=== PATIENT | female | born 1995 | race Caucasian/White ===

== ENCOUNTER 2017-05-12 20:54 | Emergency (ER) | payer BC ==
[2017-05-12 21:06] VITALS: TEMP 97.5
[2017-05-12] MEDS ORDERED: SODIUM CHLORIDE 0.9% 1,000 ML IV STA (21:23)
--- NOTE | 2017-05-12 21:23 | ED ---
Abdominal Pain HPI - General Chief Complaint: Abdominal Pain Stated Complaint: Vomiting Time Seen by Provider: 05/12/17 21:11 Source: patient Mode of arrival: ambulatory Limitations: no limitations - History of Present Illness Initial Comments: 22-year-old female patient presents to the emergency department today with complaints of abdominal pain and vomiting. The patient states that approximately one month ago her symptoms began. States it felt like period cramping however she did not have a period. She states that since that time she has been very nauseated. States was last 4-5 days she has been vomiting multiple times per day. States she is unable to eat or drink related to this. States that she is having left flank pain that radiates down into her left lower quadrant. She denies any hematuria, dysuria, urinary frequency, urinary urgency. She denies any constipation or diarrhea. States that about a week ago she did notice a small amount of bright red blood in her stool. She states this has resolved. She denies any fevers or chills. States that she did have a negative test at the beginning of April. Patient denies any recent rash, shortness breath, chest pain, back pain, numbness, tingling, dizziness, weakness, headache, visual changes, or any other complaints. - Related Data Previous Rx's Medication Instructions Recorded Metoclopramide [Reglan] 10 mg PO Q8H #10 tab 05/12/17 Pnv No.95/Ferrous Fum/Folic AC 1 each PO DAILY #30 tablet 05/12/17 [ Multivitamin Tablet] Allergies Allergy/AdvReac Type Severity Reaction Status Date / Time No Known Allergies Allergy Verified 05/12/17 21:26 Review of Systems ROS Statement: Those systems with pertinent positive or pertinent negative responses have been documented in the HPI. ROS Other: All systems not noted in ROS Statement are negative. Past Medical History Past Medical History: Thyroid Disorder History of Any Multi-Drug Resistant Organisms: None Reported Past Surgical History: No Surgical Hx Reported Past Psychological History: Anxiety, Depression Smoking Status: Current every day smoker Past Alcohol Use History: None Reported Past Drug Use History: None Reported General Exam Limitations: no limitations General appearance: alert, in no apparent distress, other (This is a well- developed, well-nourished adult female patient in no acute distress. Vital signs upon presentation temperature 97.5F, pulse 92, respirations 16, blood pressure 126/72, pulse ox 98% on room air.) Eye exam: Present: normal appearance, PERRL, EOMI. Absent: scleral icterus, conjunctival injection, periorbital swelling ENT exam: Present: normal exam, normal oropharynx, mucous membranes moist Respiratory exam: Present: normal lung sounds bilaterally. Absent: respiratory distress, wheezes, rales, rhonchi, stridor Cardiovascular Exam: Present: regular rate, normal rhythm, normal heart sounds. Absent: systolic murmur, diastolic murmur, rubs, gallop, clicks GI/Abdominal exam: Present: soft, normal bowel sounds. Absent: distended, tenderness, guarding, rebound, rigid Neurological exam: Present: alert, oriented X3, CN II-XII intact Psychiatric exam: Present: normal affect, normal mood Skin exam: Present: warm, dry, intact, normal color. Absent: rash Course Vital Signs 05/12/17 05/12/17 05/12/17 21:01 22:47 23:39 Temperature 97.5 F L Pulse Rate 92 80 80 Respiratory 16 18 18 Rate Blood Pressure 126/72 148/70 129/60 O2 Sat by Pulse 98 97 97 Oximetry Medical Decision Making - Medical Decision Making 22-year-old female patient presented to the emergency department today for some mild left lower quadrant abdominal pain as well as vomiting. Physical examination was unremarkable. Patient had no abdominal tenderness. Labs were reviewed and patient was found to have a positive urine hCG. We did perform ultrasound and they did show a viable intrauterine measuring approximately 8 weeks 1 day. We then added a hCG quantitative to this ear which showed a level of over 66,000. I did discuss findings with the patient. We did discuss use of vitamins, nausea medication, and medication safe for pain in . She is instructed to follow-up with OB as soon as possible. She is instructed to return here immediately for any new, worsening, or concerning symptoms. She verbalizes understanding and agrees with this plan. - Lab Data Result diagrams: 05/12/17 22:02 05/12/17 22:00 Lab Results 05/12/17 05/12/17 05/12/17 Range/Units 21:35 21:35 22:00 WBC (4.0-11.0) k/uL RBC (3.80-5.40) m/uL Hgb (11.4-16.0) gm/dL Hct (34.0-46.0) % MCV (80.0-100.0) fL MCH (25.0-35.0) pg MCHC (31.0-37.0) g/dL RDW (11.5-15.5) % Plt Count (150-450) k/uL Neutrophils % % Lymphocytes % % Monocytes % % Eosinophils % % Basophils % % Neutrophils # (1.3-7.7) k/uL Lymphocytes # (1.0-4.8) k/uL Monocytes # (0-1.0) k/uL Eosinophils # (0-0.7) k/uL Basophils # (0-0.2) k/uL Sodium 137 (137-145) mmol/L Potassium 3.8 (3.5-5.1) mmol/L Chloride 103 (98-107) mmol/L Carbon Dioxide 23 (22-30) mmol/L Anion Gap 11 mmol/L BUN 10 (7-17) mg/dL Creatinine 0.60 (0.52-1.04) mg/dL Est GFR (CKD-EPI)AfAm >90 (>60 ml/min/1.73 sqM) Est GFR (CKD-EPI)NonAf >90 (>60 ml/min/1.73 sqM) Glucose 97 (74-99) mg/dL Calcium 10.0 (8.4-10.2) mg/dL Total Bilirubin 0.5 (0.2-1.3) mg/dL AST 17 (14-36) U/L ALT 22 (9-52) U/L Alkaline Phosphatase 98 (38-126) U/L Total Protein 7.2 (6.3-8.2) g/dL Albumin 4.2 (3.5-5.0) g/dL Amylase 44 (30-110) U/L Lipase 60 (23-300) U/L HCG, Quant mIU/mL Urine Color Yellow Urine Appearance Cloudy H (Clear) Urine pH 6.5 (5.0-8.0) Ur Specific [place] 1.022 (1.001-1.035) Urine Protein 1+ H (Negative) Urine Glucose (UA) Negative (Negative) Urine Ketones 2+ H (Negative) Urine Blood Negative (Negative) Urine Nitrite Negative (Negative) Urine Bilirubin Negative (Negative) Urine Urobilinogen 2.0 (<2.0) mg/dL Ur Leukocyte Esterase Large H (Negative) Urine RBC 3 (0-5) /hpf Urine WBC 12 H (0-5) /hpf Ur Squamous Epith Cells 13 H (0-4) /hpf Urine Mucus Many H (None) /hpf Urine HCG, Qual Detected (Not Detectd) 05/12/17 05/12/17 Range/Units 22:00 22:02 WBC 9.8 (4.0-11.0) k/uL RBC 4.60 (3.80-5.40) m/uL Hgb 14.7 (11.4-16.0) gm/dL Hct 40.3 (34.0-46.0) % MCV 87.5 (80.0-100.0) fL MCH 32.0 (25.0-35.0) pg MCHC 36.5 (31.0-37.0) g/dL RDW 12.0 (11.5-15.5) % Plt Count 302 (150-450) k/uL Neutrophils % 75 % Lymphocytes % 17 % Monocytes % 4 % Eosinophils % 2 % Basophils % 0 % Neutrophils # 7.3 (1.3-7.7) k/uL Lymphocytes # 1.6 (1.0-4.8) k/uL Monocytes # 0.4 (0-1.0) k/uL Eosinophils # 0.2 (0-0.7) k/uL Basophils # 0.0 (0-0.2) k/uL Sodium (137-145) mmol/L Potassium (3.5-5.1) mmol/L Chloride (98-107) mmol/L Carbon Dioxide (22-30) mmol/L Anion Gap mmol/L BUN (7-17) mg/dL Creatinine (0.52-1.04) mg/dL Est GFR (CKD-EPI)AfAm (>60 ml/min/1.73 sqM) Est GFR (CKD-EPI)NonAf (>60 ml/min/1.73 sqM) Glucose (74-99) mg/dL Calcium (8.4-10.2) mg/dL Total Bilirubin (0.2-1.3) mg/dL AST (14-36) U/L ALT (9-52) U/L Alkaline Phosphatase (38-126) U/L Total Protein (6.3-8.2) g/dL Albumin (3.5-5.0) g/dL Amylase (30-110) U/L Lipase (23-300) U/L HCG, Quant 60416.2 mIU/mL Urine Color Urine Appearance (Clear) Urine pH (5.0-8.0) Ur Specific [place] (1.001-1.035) Urine Protein (Negative) Urine Glucose (UA) (Negative) Urine Ketones (Negative) Urine Blood (Negative) Urine Nitrite (Negative) Urine Bilirubin (Negative) Urine Urobilinogen (<2.0) mg/dL Ur Leukocyte Esterase (Negative) Urine RBC (0-5) /hpf Urine WBC (0-5) /hpf Ur Squamous Epith Cells (0-4) /hpf Urine Mucus (None) /hpf Urine HCG, Qual (Not Detectd) - Radiology Data Radiology results: report reviewed, image reviewed ultrasound was obtained. Report was reviewed in its entirety. Impression by Dr. Rosa shows ultrasound gestational age is 8 weeks 1 day. I see no complicating process. Disposition Clinical Impression: , Nausea & vomiting Disposition: HOME SELF-CARE Condition: Good Instructions: Nausea and Vomiting in (ED), (ED) Additional Instructions: Follow-up with [facility] as soon as possible. Take medications as directed. Return here immediately for any new, worsening, or concerning symptoms. Prescriptions: Metoclopramide [Reglan] 10 mg PO Q8H #10 tab Pnv No.95/Ferrous Fum/Folic AC [ Multivitamin Tablet] 1 each PO DAILY # 30 tablet Referrals: Jonathan Owen MD [Primary Care Provider] - 1-2 days Time of Disposition: 23:27
[2017-05-12 22:11] LABS: Appearance,Urine Cloudy (Clear); Bilirubin,Urine Negative (Negative); Blood,Urine Negative (Negative); Color,Urine Yellow; Glucose,Urine (UA) Negative (Negative); Ketones,Urine 2+ (Negative); Leukocyte Esterase,Urine Large (Negative); Mucus,Urine Many /hpf; Nitrite,Urine Negative (Negative); PH, Urine 6.5 (5.0-8.0); Protein,Urine 1+ (Negative); RBC,Urine 3 /hpf (0-5); Specific Gravity,Urine 1.022 (1.001-1.035); Squamous Epithelial Cell,Urine 13 /hpf (0-4); WBC,Urine 12 /hpf (0-5)
[2017-05-12 22:18] LABS: Basophils % (A) 0 %; Eosinophils # (A) 0.2 k/uL (0-0.7); Eosinophils % (A) 2 %; HCT 40.3 % (34.0-46.0); HGB 14.7 gm/dL (11.4-16.0); Lymphocytes # (A) 1.6 k/uL (1.0-4.8); Lymphocytes % (A) 17 %; MCHC 36.5 g/dL (31.0-37.0); MCV 87.5 fL (80.0-100.0); Mean Platelet Volume 7.2; Monocytes # (A) 0.4 k/uL (0-1.0); Monocytes % (A) 4 %; Neutrophils # (A) 7.3 k/uL (1.3-7.7); Neutrophils % (A) 75 %; Platelet Count 302 k/uL (150-450); WBC 9.8 k/uL (4.0-11.0)
[2017-05-12] MEDS ORDERED: diphenhydrAMINE 50 MG/ML 1 ML VIAL IVP STA (22:26)
[2017-05-12] MEDS ORDERED: METOCLOPRAMIDE 5 MG/ML 2 ML VIAL IVP STA (22:26)
[2017-05-12 22:48] VITALS: PULSE 80; RESP 18
[2017-05-12 23:01] LABS: ALT 22 U/L (9-52); AST 17 U/L (14-36); Albumin 4.2 g/dL (3.5-5.0); Alkaline Phosphatase 98 U/L (38-126); Amylase 44 U/L (30-110); Anion Gap 11 mmol/L; Blood Urea Nitrogen 10 mg/dL (7-17); Carbon Dioxide 23 mmol/L (22-30); Chloride 103 mmol/L (98-107); Glucose 97 mg/dL (74-99); Lipase 60 U/L (23-300); Potassium 3.8 mmol/L (3.5-5.1); Sodium 137 mmol/L (137-145); Total Bilirubin 0.5 mg/dL (0.2-1.3); Total Protein 7.2 g/dL (6.3-8.2)
--- NOTE | 2017-05-12 23:20 | US ---
EXAMINATION TYPE: US OB <= 14 wk fetus DATE OF EXAM: 05/12/2017 COMPARISON: NONE CLINICAL HISTORY: Pain. Cramping EXAM PERFORMED: Transabdominal (TA) EXAM MEASUREMENTS: GESTATIONAL AGE / DATING Physician Established: Not yet established Dates by LMP: (8 weeks/4 days) EDC: 12/18/2017 Dates by First Scan: No previous this is first scan Dates by Current Scan for: (8 weeks/1 days) EDC: 12/21/2017 MATERNAL ANATOMY Uterus: 9.6 x 4.9 x 5.5 cm Right Ovary: 2.7 x 1.9 x 2.1 cm Left Ovary: 2.4 x 1.7 x 1.8 cm Post CDS / Adnexa: wnl Presence of free fluid: No Presence of corpus luteal cyst: Cystic area visualized right ovary measuring 1.8 x 1.2 x 1.1 cm Presence of subchorionic bleed: No GESTATION / SURVEY CRL: 1.71 cm (8 weeks/1 days) Yolk Sac (normal less than 6mm): 3.6 mm Heart Rate: 165 bpm Rhythm: Normal IUP: Viable IUP Date of LMP: 03/13/2017 Beta HcG (if available): Not available at this time Viable IUP, measurement consistent with dates. MAGDALENA of 12/21/2017 by this exam. IMPRESSION: The ultrasound gestational age is 8 weeks 1 day. I see no complicating process.
[2017-05-12 23:40] VITALS: BP 129/60
== END 2017-05-12 23:42 | disposition home or self-care (01) ==
LOC: EC 20:54
DX: O21.9 Vomiting of pregnancy, unspecified (principal); O99.89 Other specified diseases and conditions complicating pregnancy, childbirth and the puerperium; R10.32 Left lower quadrant pain; O99.331 Smoking (tobacco) complicating pregnancy, first trimester; F17.200 Nicotine dependence, unspecified, uncomplicated; Z3A.08 8 weeks gestation of pregnancy
CPT/HCPCS: 36415; 80053; 82150; 83690; 85025; 81001; 81025; 84702; 76801; 99284; 96374; 96375; 96361; J1200; J2765

== ENCOUNTER 2017-05-30 21:36 | Emergency (ER) | payer BC ==
[2017-05-30 21:42] VITALS: RESP 18
[2017-05-30] MEDS ORDERED: SODIUM CHLORIDE 0.9% 1,000 ML IV ONE (22:59)
[2017-05-30 23:16] LABS: Basophils % (A) 0 %; Eosinophils # (A) 0.4 k/uL (0-0.7); Eosinophils % (A) 3 %; HCT 42.5 % (34.0-46.0); HGB 14.5 gm/dL (11.4-16.0); Lymphocytes # (A) 1.6 k/uL (1.0-4.8); Lymphocytes % (A) 16 %; MCH 30.4 pg (25.0-35.0); MCHC 34.1 g/dL (31.0-37.0); MCV 89.2 fL (80.0-100.0); Mean Platelet Volume 7.7; Monocytes # (A) 0.6 k/uL (0-1.0); Monocytes % (A) 5 %; Neutrophils # (A) 7.8 k/uL (1.3-7.7); Neutrophils % (A) 74 %; Platelet Count 323 k/uL (150-450); RBC 4.77 m/uL (3.80-5.40); RDW 12.1 % (11.5-15.5); WBC 10.5 k/uL (4.0-11.0)
[2017-05-30 23:21] LABS: Appearance,Urine Cloudy (Clear); Bilirubin,Urine Negative (Negative); Blood,Urine Moderate (Negative); Calcium Oxalate Crystals,Urine Few /hpf; Color,Urine Yellow; Glucose,Urine (UA) Negative (Negative); Ketones,Urine Negative (Negative); Leukocyte Esterase,Urine Negative (Negative); Mucus,Urine Many /hpf; Nitrite,Urine Negative (Negative); Protein,Urine Trace (Negative); RBC,Urine 27 /hpf (0-5); Specific Gravity,Urine 1.021 (1.001-1.035); Squamous Epithelial Cell,Urine 4 /hpf (0-4); WBC,Urine 5 /hpf (0-5)
--- NOTE | 2017-05-30 23:22 | ED ---
Female Urogenital HPI - General Chief complaint: OB/Uterine Contractions Stated complaint: 10 wks preg/vaginal bleeding Time Seen by Provider: 05/30/17 22:24 Source: patient Mode of arrival: ambulatory Limitations: no limitations - History of Present Illness Initial comments: 22-year-old female patient presents to the emergency department today for complaints of vaginal bleeding. Patient states around 9 PM she stood up from the couch and felt gushing from her vagina. Patient states that she went to the bathroom and seemed to be having blood pouring from her. She reports bright red blood with small clots. Patient states she is approximately 10 weeks . Had a positive intrauterine via ultrasound 2 weeks ago. Has not had a chance to obtain care at this point. Patient is . Patient states that she feels like at this time the bleeding has slowed down. States that she has been having a lot of morning sickness and has been very fatigued. States that she was treating with intravaginal Monistat for yeast infection. States she is on her last dose today. She denies any abdominal pain at this time. States she did have one sharp pain to her left abdomen earlier today, but has not had any further pain. She denies any hematuria, dysuria, urinary frequency, urinary urgency. Patient denies any recent rash, fever, chills, shortness breath, chest pain, diarrhea, constipation, back pain, numbness, tingling, dizziness, weakness, headache, visual changes, or any other complaints. - Related Data Home Medications Medication Instructions Recorded Confirmed Pnv No.95/Ferrous Fum/Folic AC 1 tab PO DAILY 05/30/17 05/30/17 [ Multivitamin Tablet] Allergies Allergy/AdvReac Type Severity Reaction Status Date / Time No Known Allergies Allergy Verified 05/30/17 22:20 Review of Systems ROS Statement: Those systems with pertinent positive or pertinent negative responses have been documented in the HPI. ROS Other: All systems not noted in ROS Statement are negative. Past Medical History Past Medical History: Thyroid Disorder History of Any Multi-Drug Resistant Organisms: None Reported Past Surgical History: No Surgical Hx Reported Past Psychological History: Anxiety, Depression Smoking Status: Current every day smoker Past Alcohol Use History: None Reported Past Drug Use History: None Reported General Exam Limitations: no limitations General appearance: alert, in no apparent distress, other (This is a well- developed, well-nourished adult female patient in no acute distress. Vital signs upon presentation are temperature 97.9F, pulse 107, respirations 18, blood pressure 130/76, pulse ox 97% on room air.) Eye exam: Present: normal appearance, PERRL, EOMI. Absent: scleral icterus, conjunctival injection, periorbital swelling ENT exam: Present: normal exam, normal oropharynx, mucous membranes moist Respiratory exam: Present: normal lung sounds bilaterally. Absent: respiratory distress, wheezes, rales, rhonchi, stridor Cardiovascular Exam: Present: regular rate, normal rhythm, normal heart sounds. Absent: systolic murmur, diastolic murmur, rubs, gallop, clicks GI/Abdominal exam: Present: soft, normal bowel sounds. Absent: distended, tenderness, guarding, rebound, rigid Neurological exam: Present: alert, oriented X3, CN II-XII intact Psychiatric exam: Present: normal affect, normal mood Skin exam: Present: warm, dry, intact, normal color. Absent: rash Course Vital Signs 05/30/17 05/31/17 05/31/17 21:38 00:03 01:13 Temperature 97.9 F Pulse Rate 107 H 89 80 Respiratory 18 18 18 Rate Blood Pressure 130/76 114/51 109/60 O2 Sat by Pulse 97 98 97 Oximetry Medical Decision Making - Medical Decision Making 22-year-old female patient presented to the emergency department today for evaluation of vaginal bleeding in early . Physical examination was unremarkable. Abdomen was soft and nontender. Did perform a pelvic examination which did reveal small amount of dark red vaginal bleeding with one small clot. Cervix is closed at this time. Labs reviewed and did reveal an hCG level of 63,010.8. This is decreased from 66,000 3 weeks ago. Patient is blood type B+. I did discuss findings with the patient, we did discuss diagnosis of threatened miscarriage. Instructed her to follow-up with [facility] as soon as possible. She is instructed to return here immediately for any new, worsening, or concerning symptoms. She verbalizes understanding and agrees with this plan. - Lab Data Result diagrams: 05/30/17 23:08 05/30/17 23:08 Lab Results 05/30/17 05/30/17 05/30/17 Range/Units 23:08 23:08 23:08 WBC 10.5 (4.0-11.0) k/uL RBC 4.77 (3.80-5.40) m/uL Hgb 14.5 (11.4-16.0) gm/dL Hct 42.5 (34.0-46.0) % MCV 89.2 (80.0-100.0) fL MCH 30.4 (25.0-35.0) pg MCHC 34.1 (31.0-37.0) g/dL RDW 12.1 (11.5-15.5) % Plt Count 323 (150-450) k/uL Neutrophils % 74 % Lymphocytes % 16 % Monocytes % 5 % Eosinophils % 3 % Basophils % 0 % Neutrophils # 7.8 H (1.3-7.7) k/uL Lymphocytes # 1.6 (1.0-4.8) k/uL Monocytes # 0.6 (0-1.0) k/uL Eosinophils # 0.4 (0-0.7) k/uL Basophils # 0.0 (0-0.2) k/uL Sodium 141 (137-145) mmol/L Potassium 4.0 (3.5-5.1) mmol/L Chloride 106 (98-107) mmol/L Carbon Dioxide 21 L (22-30) mmol/L Anion Gap 14 mmol/L BUN 13 (7-17) mg/dL Creatinine 0.50 L (0.52-1.04) mg/dL Est GFR (CKD-EPI)AfAm >90 (>60 ml/min/1.73 sqM) Est GFR (CKD-EPI)NonAf >90 (>60 ml/min/1.73 sqM) Glucose 102 H (74-99) mg/dL Calcium 9.9 (8.4-10.2) mg/dL Total Bilirubin 0.3 (0.2-1.3) mg/dL AST 21 (14-36) U/L ALT 29 (9-52) U/L Alkaline Phosphatase 102 (38-126) U/L Total Protein 7.3 (6.3-8.2) g/dL Albumin 4.3 (3.5-5.0) g/dL HCG, Quant 27824.8 mIU/mL Urine Color Yellow Urine Appearance Cloudy H (Clear) Urine pH 6.0 (5.0-8.0) Ur Specific [place] 1.021 (1.001-1.035) Urine Protein Trace H (Negative) Urine Glucose (UA) Negative (Negative) Urine Ketones Negative (Negative) Urine Blood Moderate H (Negative) Urine Nitrite Negative (Negative) Urine Bilirubin Negative (Negative) Urine Urobilinogen 2.0 (<2.0) mg/dL Ur Leukocyte Esterase Negative (Negative) Urine RBC 27 H (0-5) /hpf Urine WBC 5 (0-5) /hpf Ur Squamous Epith Cells 4 (0-4) /hpf Calcium Oxalate Crystal Few H (None) /hpf Urine Mucus Many H (None) /hpf Blood Type Blood Type Recheck 05/31/17 Range/Units 00:45 WBC (4.0-11.0) k/uL RBC (3.80-5.40) m/uL Hgb (11.4-16.0) gm/dL Hct (34.0-46.0) % MCV (80.0-100.0) fL MCH (25.0-35.0) pg MCHC (31.0-37.0) g/dL RDW (11.5-15.5) % Plt Count (150-450) k/uL Neutrophils % % Lymphocytes % % Monocytes % % Eosinophils % % Basophils % % Neutrophils # (1.3-7.7) k/uL Lymphocytes # (1.0-4.8) k/uL Monocytes # (0-1.0) k/uL Eosinophils # (0-0.7) k/uL Basophils # (0-0.2) k/uL Sodium (137-145) mmol/L Potassium (3.5-5.1) mmol/L Chloride (98-107) mmol/L Carbon Dioxide (22-30) mmol/L Anion Gap mmol/L BUN (7-17) mg/dL Creatinine (0.52-1.04) mg/dL Est GFR (CKD-EPI)AfAm (>60 ml/min/1.73 sqM) Est GFR (CKD-EPI)NonAf (>60 ml/min/1.73 sqM) Glucose (74-99) mg/dL Calcium (8.4-10.2) mg/dL Total Bilirubin (0.2-1.3) mg/dL AST (14-36) U/L ALT (9-52) U/L Alkaline Phosphatase (38-126) U/L Total Protein (6.3-8.2) g/dL Albumin (3.5-5.0) g/dL HCG, Quant mIU/mL Urine Color Urine Appearance (Clear) Urine pH (5.0-8.0) Ur Specific [place] (1.001-1.035) Urine Protein (Negative) Urine Glucose (UA) (Negative) Urine Ketones (Negative) Urine Blood (Negative) Urine Nitrite (Negative) Urine Bilirubin (Negative) Urine Urobilinogen (<2.0) mg/dL Ur Leukocyte Esterase (Negative) Urine RBC (0-5) /hpf Urine WBC (0-5) /hpf Ur Squamous Epith Cells (0-4) /hpf Calcium Oxalate Crystal (None) /hpf Urine Mucus (None) /hpf Blood Type B Positive Blood Type Recheck No - Radiology Data Radiology results: report reviewed, image reviewed ultrasound was obtained, report was reviewed in its entirety. Impression by Dr. Rosa shows ultrasound gestational age is 10 weeks 1 day. getting process seen. There is satisfactory development compared to last exam of 2017. Heart rate is 154 bpm. Disposition Clinical Impression: Vaginal bleeding during , Threatened miscarriage Disposition: HOME SELF-CARE Condition: Good Instructions: Threatened Miscarriage (ED), First Trimester Vaginal Bleed (ED) Additional Instructions: Increase fluids. Follow-up with [facility] as soon as possible. Return here immediately for any new, worsening, or concerning symptoms. Referrals: Jonathan Owen MD [Primary Care Provider] - 1-2 days Time of Disposition: 01:21
[2017-05-30 23:25] LABS: ALT 29 U/L (9-52); AST 21 U/L (14-36); Albumin 4.3 g/dL (3.5-5.0); Alkaline Phosphatase 102 U/L (38-126); Anion Gap 14 mmol/L; Blood Urea Nitrogen 13 mg/dL (7-17); Calcium 9.9 mg/dL (8.4-10.2); Carbon Dioxide 21 mmol/L (22-30); Chloride 106 mmol/L (98-107); Glucose 102 mg/dL (74-99); Sodium 141 mmol/L (137-145); Total Bilirubin 0.3 mg/dL (0.2-1.3); Total Protein 7.3 g/dL (6.3-8.2)
--- NOTE | 2017-05-31 00:02 | US ---
EXAMINATION TYPE: US OB <= 14 wk fetus DATE OF EXAM: 05/30/2017 COMPARISON: 05/12/2017 CLINICAL HISTORY: Pain. Bleeding EXAM PERFORMED: Transabdominal (TA) EXAM MEASUREMENTS: GESTATIONAL AGE / DATING Physician Established: (11weeks/1 days) EDC: 12/18/2017 Dates by LMP: (11weeks/1 days) EDC: 12/18/2017 Dates by First Scan: (8 weeks/1 days) EDC: 12/21/2017 Dates by Current Scan for: (10weeks/1 days) EDC: 12/25/2017 MATERNAL ANATOMY Uterus: 9.3 x 6.3 x 7.8 cm Post CDS / Adnexa: wnl Presence of free fluid: no Presence of corpus luteal cyst: no Presence of subchorionic bleed: no GESTATION / SURVEY CRL: 3.2cm 10 weeks/1days Heart Rate: 154pm Rhythm: Normal IUP: Viable IUP Date of LMP: 03/13/2017 Beta HcG (if available): Not available at this time Viable IUP [id number] MAGDALENA 12/25/2017 HR 154 BPM IMPRESSION: The ultrasound gestational age is 10 weeks 1 day. I see no complicating process. There is satisfactor y development compared to last exam of 05/12/2017.
[2017-05-31 00:46] LABS: HCG,Quantitative Serum 63010.8 mIU/mL
[2017-05-31 01:14] VITALS: BP 109/60; PULSE 80
[2017-05-31 01:37] VITALS: TEMP 98.8
== END 2017-05-31 01:35 | disposition home or self-care (01) ==
LOC: EC 21:36
DX: O20.0 Threatened abortion (principal); O99.331 Smoking (tobacco) complicating pregnancy, first trimester; F17.200 Nicotine dependence, unspecified, uncomplicated; Z3A.10 10 weeks gestation of pregnancy
CPT/HCPCS: 36415; 76801; 80053; 81001; 84702; 85025; 86900; 86901; 96360; 99284

== ENCOUNTER 2017-12-16 16:09 | Outpatient (CLI) | payer BC ==
[2017-12-16 18:01] VITALS: BP 133/62; PULSE 98; RESP 16; TEMP 97.9
--- NOTE | 2017-12-17 12:03 | P.MSEPDOC ---
Presenting Problems - Arrival Data Date of Arrival on Unit: 12/16/17 Time of Arrival on Unit: 16:10 Mode of Transport: Wheelchair - Complaint OB-Reason for Admission/Chief Complaint: Possible Onset of Labor Comment: pt presents to triage with c/o lower back pain, pt unsure if she is having contractions, pt was dilated to 4 cm at last appt, reports + fm, denies lof/vb Medical History - Information : 1 Para: 0 Term: 0 : 0 Abortions: Spontaneous or Elective: 0 Number of Living Children: 0 - Gestational Age Gestational Age by MAGDALENA (wks/days): 39 Weeks and 2 Days Review of Systems - Review of Systems Constitutional: No problems Breast: No problems ENT: No problems Cardiovascular: No problems Respiratory: No problems Gastrointestinal: No problems Genitourinary: No problems Musculoskeletal: No problems Neurological: No problems Skin: No problems Vital Signs - Temperature Temperature: 97.9 F - Pulse Right Brachial Pulse Rate: 98 Pulse Assessment Method: Automatic Cuff - Respirations Respiratory Rate: 16 Oxygen Delivery Method: Room Air O2 Sat by Pulse Oximetry: 98 - Blood Pressure Right Arm Blood Pressure: 133/62 Blood Pressure Mean: 85 Blood Pressure Source: Automatic Cuff Medical Screen Scoring (Pre) - Cervical Exam Dilation: 4-7 cm = 2 Effacement: More than 50% = 2 Membranes: Intact - Uterine Contractions Frequency: N/A Duration: N/A Intensity: N/A - Maternal Vital Signs Maternal Temperature: N/A Maternal Blood Pressure: N/A Signs of Preeclampsia: N/A Maternal Respirations: N/A - Pain Assessment Pain Location and Character: Lower, Back Pain Scale Used: Numeric (1 - 10) Pain Intensity: 6 Pain Description: *Acute, Aching Pain Radiation Location: none Pain Frequency: Intermittent Pain Duration: 2 Pain Duration Units: Hours Pain Behavior: None Exhibited Pain Aggravating Factors: None - Maternal Trauma Maternal Trauma: N/A - Assessment Baseline FHR: 135 Heart Rate - NICHD Category: Category I (Normal) = 0 NST: Reactive Position: N/A Station: N/A - Total Score Total Score (Pre): 4 - Level of Risk Level of Risk: Low (0-5) Physician Notification (Pre) - Physician Notified Physician Notified Date: 12/16/17 Physician Notified Time: 16:45 Physician/Practitioner Notifed:: dr brian Spoke With: dr brian New Order Received: Yes (dc home) Disposition - Disposition OB Disposition: Discharge to home, Written follow up instructions reviewed Discharge Date: 12/16/17 Discharge Time: 16:49 I agree with the RN Medical Screening Exam: Yes Risk & Benefit of care provided described in d/c instruction: Yes Diagnosis: FALSE LABOR AT OR AFTER 37 COMPLETED WEEKS OF GESTATION
== END 2017-12-16 16:49 | disposition home or self-care (01) ==
LOC: FBPOP 16:09
PROVIDERS: ATTEND Obstetrics & Gynecology
DX: O47.1 False labor at or after 37 completed weeks of gestation (principal); Z3A.39 39 weeks gestation of pregnancy
CPT/HCPCS: 59025; 99213

== ENCOUNTER 2017-12-20 19:53 | Inpatient (IN) | payer BC ==
[2017-12-20 20:17] VITALS: RESP 16
[2017-12-20] MEDS ORDERED: CARBOPROST TROMETHAMINE 250 MCG/ML 1 ML AMP IM PRN (20:29)
[2017-12-20] MEDS ORDERED: OXYTOCIN 10 UNIT/ML 1 ML VIAL IM PRN (20:29)
[2017-12-20] MEDS ORDERED: PENICILLIN G POTASSIUM 5,000,000 UNIT in DEXTROSE 5% IN WATER 100 ML IVPB STA ×2 (20:29)
[2017-12-20] MEDS ORDERED: TERBUTALINE 1 MG/ML VIAL SQ PRN (20:29)
[2017-12-20] MEDS ORDERED: METHYLERGONOVINE 0.2 MG/ML 1 ML AMP IM PRN (20:29)
[2017-12-20] MEDS ORDERED: LIDOCAINE 0.5% (PF) 5 MG/ML (50 ML SDV) SQ PRN (20:29)
[2017-12-20] MEDS ORDERED: BUTORPHANOL 1 MG/ML 1 ML VIAL IV PRN (20:30)
[2017-12-20] MEDS: LACTATED RINGERS 1,000 ML IV SCH ×2 (21:14→23:19)
[2017-12-20 21:28] LABS: Basophils % (A) 0 %; Eosinophils # (A) 0.1 k/uL (0-0.7); Eosinophils % (A) 1 %; HCT 37.1 % (34.0-46.0); HGB 12.6 gm/dL (11.4-16.0); Lymphocytes # (A) 1.6 k/uL (1.0-4.8); Lymphocytes % (A) 14 %; MCHC 34.1 g/dL (31.0-37.0); MCV 91.1 fL (80.0-100.0); Mean Platelet Volume 7.5; Monocytes # (A) 0.5 k/uL (0-1.0); Monocytes % (A) 5 %; Neutrophils # (A) 9.1 k/uL (1.3-7.7); Neutrophils % (A) 79 %; Platelet Count 265 k/uL (150-450); RBC 4.07 m/uL (3.80-5.40); RDW 13.1 % (11.5-15.5); WBC 11.5 k/uL (4.0-11.0)
[2017-12-20 21:34] VITALS: BMI 41.9
[2017-12-20] MEDS ORDERED: ROPIVACAINE 5MG/ML 20ML VIAL ONE (22:58)
[2017-12-20] MEDS ORDERED: fentaNYL (PF) 50 MCG/ML 5 ML AMP ONE (22:58)
[2017-12-20] MEDS ORDERED: SODIUM CHLORIDE 0.9% 100 ML BAG ONE (22:58)
[2017-12-21] MEDS ORDERED: PENICILLIN G POTASSIUM 2,500,000 UNIT in DEXTROSE 5% IN WATER 100 ML IVPB SCH ×2 (00:30)
--- NOTE | 2017-12-21 02:35 | P.HPOB ---
History of Present Illness H&P Date: 12/21/17 Chief Complaint: Possible contractions This is a 22-year-old 1 para 0 woman with an estimated due date of 12/21 based on 8 week ultrasound who presents with concerns for labor. She had been seen earlier in the day in the office and was 6 cm dilated. She is known group B strep positive. She developed irregular contractions throughout the rest of the day and because she was known group B strep positive she was concerned therefore came in to labor and delivery. She denied leakage of fluids or vaginal bleeding. The has been otherwise uncomplicated. Upon initial presentation to labor and delivery triage she was 5-6 cm dilated and mildly rosemary. She was admitted secondary to advanced cervical dilation and group B strep positive at 39-6/7 weeks' gestation. Laboratory data: Blood type B positive, antibody screen negative, rubella immune , VDRL nonreactive, hepatitis B surface antigen negative, HIV negative, glucose tolerance testing within normal limits, group B strep positive. Review of Systems All systems: negative Past Medical History Past Medical History: Thyroid Disorder History of Any Multi-Drug Resistant Organisms: None Reported Past Surgical History: No Surgical Hx Reported Past Anesthesia/Blood Transfusion Reactions: No Reported Reaction Past Psychological History: Anxiety, Depression Smoking Status: Never smoker Past Alcohol Use History: None Reported Past Drug Use History: None Reported - Past Family History Mother Family Medical History: Cancer Medications and Allergies Home Medications Medication Instructions Recorded Confirmed Type Pnv No.95/Ferrous Fum/Folic AC 1 tab PO DAILY 05/30/17 12/20/17 History [ Multivitamin Tablet] Allergies Allergy/AdvReac Type Severity Reaction Status Date / Time No Known Allergies Allergy Verified 05/30/17 22:20 Exam Vital Signs Temp Pulse Resp BP Pulse Ox 12/20/17 20:29 97.6 F 81 16 132/73 97 12/20/17 20:06 97.6 F 81 16 132/73 97 Intake and Output 12/20/17 12/20/17 12/21/17 14:59 22:59 06:59 Other: # Voids 1 Weight 117.934 kg On presentation per the housekeeping staff the cervix is 5-6 cm dilated 80% effaced with intact membranes. Results Result Diagrams: 12/20/17 21:10 Abnormal Lab Results - Last 24 Hours (Table) 12/20/17 Range/Units 21:10 WBC 11.5 H (4.0-11.0) k/uL Neutrophils # 9.1 H (1.3-7.7) k/uL Assessment and Plan (1) 39 weeks gestation of Current Visit: Yes Status: Acute Code(s): Z3A.39 - 39 WEEKS GESTATION OF SNOMED Code(s): 12545555 (2) Positive GBS test Current Visit: Yes Status: Acute Code(s): B95.1 - STREPTOCOCCUS, GROUP B, CAUSING DISEASES [facility] SNOMED Code(s): 5695183145729 Plan: 22-year-old 1 para 0 woman at 39-6/7 weeks' gestation admitted with advanced cervical dilation, not in active labor who is known group B strep positive. She will be observed overnight and expectant management. Should she go to active labor she will be managed appropriately. Group B strep prophylactic antibiotics will be initiated as induction of labor is planned in the morning regardless. status is currently she reassuring by external monitoring.
--- NOTE | 2017-12-21 03:19 | P.PROBDLV ---
Vaginal Delivery Note - . Vaginal Delivery Note: Findings: Female in the vertex right occiput anterior position with nuchal cord 1. Apgars 8 at 1 minute and 9 at 5 minutes. Weight 7 lbs. 13 oz. , 3555 g. Intact, three-vessel cord placenta. First-degree perineal laceration. Delivery summary: This is a 22-year-old 1 para 0 woman who presented at 39-6/7 weeks' gestation with concerns over advanced cervical dilation and group B strep status positive. She was admitted and was irregularly rosemary. Group B strep prophylactic antibiotics were initiated. Her contraction pattern eventually became more regular and she was given an epidural anesthetic. She rested comfortably on. She reached complete cervical dilation by approximately 02 100. She had strong urge to push. She commenced pushing with good maternal effort. After approximately 1 hour second stage of labor the was . She was repositioned, prepped and draped in the modified Nichole position. With additional maternal effort the head did deliver from the right occiput anterior position. Tight nuchal cord 1 was noted. The rest the infant was delivered without difficulty and was followed with a gush of clear fluid. No previous amniotic fluid has been noted throughout the labor. On the infant's nose and mouth were bulb suctioned and she was placed on the maternal abdomen. Cord was clamped and cut. Apgars were 8 at 1 minute and 9 at 5 minutes. Weight 7 lbs. 13 oz. An intact, three-vessel cord placenta was delivered after approximately 6 minute third stage of labor. The perineum was inspected and a first-degree laceration of the hymeneal ring was noted. This was repaired with 3-0 Vicryl suture in the usual fashion. The rest of the vagina was inspected and there was an abrasion on the right vaginal sidewall that was not actively bleeding. The uterus was massaged and was noted to be firm at the level of the umbilicus. Patient received Pitocin following delivery of the placenta. All counts were correct. EBL approximately 200 mL's.
[2017-12-21] MEDS ORDERED: HYDROCORTISONE 2.5% RECTAL CREAM 30 GM TUBE RECTAL PRN (03:20)
[2017-12-21] MEDS ORDERED: LANOLIN CREAM 5 GM TUBE TOPICAL PRN (03:20)
[2017-12-21] MEDS ORDERED: SIMETHICONE 80 MG CHEWABLE PO PRN (03:20)
[2017-12-21] MEDS ORDERED: diphenhydrAMINE 50 MG CAP PO PRN (03:20)
[2017-12-21] MEDS ORDERED: ACETAMINOPHEN TAB 325 MG TAB PO PRN (03:20)
[2017-12-21] MEDS ORDERED: BENZOCAINE/MENTHOL SPRAY 1 GM/SPRAY AEROSOL TOPICAL PRN (03:20)
[2017-12-21] MEDS ORDERED: WITCH HAZEL 1 EACH MED..PAD TOPICAL PRN (03:20)
[2017-12-21] MEDS ORDERED: diphenhydrAMINE 25 MG CAP PO PRN (03:20)
[2017-12-21] MEDS ORDERED: ZOLPIDEM 5 MG TAB PO PRN (03:20)
[2017-12-21] MEDS ORDERED: diphenhydrAMINE 50 MG/ML 1 ML VIAL IVP PRN ×2 (03:20)
[2017-12-21] MEDS ORDERED: OXYTOCIN 20 UNITS/1000 ML NS 1,000 ML IV SCH (03:30)
[2017-12-21] MEDS: SENNOSIDES-DOCUSATE SODIUM 1 EACH TAB PO SCH ×2 (09:00→21:06)
[2017-12-21] MEDS: IBUPROFEN 600 MG TAB PO PRN ×2 (17:05→23:07)
[2017-12-22] MEDS: SENNOSIDES-DOCUSATE SODIUM 1 EACH TAB PO SCH ×2 (07:46→19:56)
[2017-12-22] MEDS: IBUPROFEN 600 MG TAB PO PRN ×3 (07:46→22:13)
[2017-12-22 07:59] LABS: Basophils % (A) 0 %; Eosinophils # (A) 0.2 k/uL (0-0.7); Eosinophils % (A) 2 %; HCT 37.7 % (34.0-46.0); HGB 12.9 gm/dL (11.4-16.0); Lymphocytes # (A) 1.3 k/uL (1.0-4.8); Lymphocytes % (A) 17 %; MCH 31.7 pg (25.0-35.0); MCHC 34.2 g/dL (31.0-37.0); MCV 92.9 fL (80.0-100.0); Mean Platelet Volume 7.5; Monocytes # (A) 0.3 k/uL (0-1.0); Monocytes % (A) 4 %; Neutrophils # (A) 5.9 k/uL (1.3-7.7); Neutrophils % (A) 75 %; Platelet Count 194 k/uL (150-450); RBC 4.06 m/uL (3.80-5.40); RDW 13.4 % (11.5-15.5); WBC 7.9 k/uL (4.0-11.0)
--- NOTE | 2017-12-22 08:08 | P.DS ---
Providers Date of admission: 12/20/17 20:28 Expected date of discharge: 12/22/17 Attending physician: Mine Pang Primary care physician: Stated None Hospital Course: This is a 22-year-old white female 1 para 0 EDC 12/21/2017 who presented at 40 weeks gestation in active labor. was unremarkable, blood type B positive, group B strep cultures positive, rubella status immune. Please see dictated history and physical for details. Patient was admitted, spontaneous amniorrhexis occurred. She went on to deliver vaginally a liveborn female with scores of 8 and 9 at one and 5 minutes respectively. There was an estimated blood loss recorded of 200 mL's. weighed 7 lbs. 13 oz. or 3555 g. Please see dictated delivery note for details. This morning the patient is doing well. Fundus is firm and in the midline, symmetric and nontender. Extremities are negative. Breasts are not engorged. Chest is clear. She is voiding, ambulating and passing flatus without difficulty. Vital signs are stable and she is afebrile. [place] is being evaluated by manager mortgage. Patient at this time is requesting discharge home. I have given her prescription for a double electric breast pump. I reminded her to call me with any fevers shakes or chills, foul smelling or copious lochia, with the passage of large blood clots, with any pain not alleviated by [id number] Advil or Aleve, or indeed with any concerns. We have briefly contemplated options for contraception and we will discuss this further in the office. She is reminded no intercourse, tampons or douching. [place] will follow-up with manager mortgage as recommended. Patient Condition at Discharge: Good Plan - Discharge Summary Discharge Rx Participant: No New Discharge Prescriptions: No Action Pnv No.95/Ferrous Fum/Folic AC [ Multivitamin Tablet] 1 tab PO DAILY Discharge Medication List Pnv No.95/Ferrous Fum/Folic AC [ Multivitamin Tablet] 1 tab PO DAILY [History] Follow up Appointment(s)/Referral(s): Mine Pang MD [STAFF PHYSICIAN] - 6 Weeks Discharge Disposition: HOME SELF-CARE
[2017-12-23] MEDS: IBUPROFEN 600 MG TAB PO PRN (08:36)
[2017-12-23] MEDS: SENNOSIDES-DOCUSATE SODIUM 1 EACH TAB PO SCH (08:36)
[2017-12-23 09:10] VITALS: BP 132/64; PULSE 76; TEMP 97.4
== END 2017-12-23 15:35 | disposition home or self-care (01) | DRG 807 ==
LOC: FBPOP 19:53 → 4FBP 20:28
PROVIDERS: ADMIT Obstetrics & Gynecology; ATTEND Obstetrics & Gynecology
PROC: 10E0XZZ Delivery of Products of Conception, External Approach (ICD-10-PCS; principal; 2017-12-21)
PROC: 0HQ9XZZ Repair Perineum Skin, External Approach (ICD-10-PCS; 2017-12-21)
PROC: 00HU33Z Insertion of Infusion Device into Spinal Canal, Percutaneous Approach (ICD-10-PCS; 2017-12-21)
PROC: 3E0R3BZ Introduction of Anesthetic Agent into Spinal Canal, Percutaneous Approach (ICD-10-PCS; 2017-12-21)
DX: O69.1XX0 Labor and delivery complicated by cord around neck, with compression, not applicable or unspecified (principal); Z37.0 Single live birth; O99.824 Streptococcus B carrier state complicating childbirth; O99.344 Other mental disorders complicating childbirth; F32.9 Major depressive disorder, single episode, unspecified; F41.9 Anxiety disorder, unspecified; O70.0 First degree perineal laceration during delivery; Z3A.40 40 weeks gestation of pregnancy
CPT/HCPCS: 59025; 85025; 86850; 86900; 86901; 99213

== ENCOUNTER 2019-05-27 10:25 | Emergency (ER) | payer BC ==
[2019-05-27 10:31] VITALS: RESP 18; TEMP 98.1
[2019-05-27] MEDS ORDERED: ONDANSETRON 4 MG/2 ML VIAL IVP STA ×2 (10:35→14:09)
[2019-05-27] MEDS ORDERED: MORPHINE SULFATE 4 MG/ML SYRINGE IV STA (10:35)
[2019-05-27] MEDS ORDERED: SODIUM CHLORIDE 0.9% 1,000 ML IV STA (10:35)
[2019-05-27] MEDS ORDERED: KETOROLAC 30 MG/ML 1 ML VIAL IVP STA (10:35)
--- NOTE | 2019-05-27 10:43 | ED ---
Abdominal Pain HPI - General Chief Complaint: Abdominal Pain Stated Complaint: left side abdominal pain Time Seen by Provider: 05/27/19 10:32 Source: patient, RN notes reviewed Mode of arrival: ambulatory Limitations: no limitations - History of Present Illness Initial Comments: This a 24-year-old female presents emergency Department with chief complaint of left flank pain. Patient states is a sudden onset of pain that woke her up this morning. Patient states he rates from her left kidney region down to her lower pelvis region on the left. She denies any diarrhea, constipation, dysuria hematuria. Patient has no history kidney stones denies any chance her last mental cycle was 3 days ago. Patient denies fevers, chills, chest pain or shortness breath nothing makes the pain feel better or worse she states it does wax and wane. - Related Data Home Medications Medication Instructions Recorded Confirmed Clindamycin Phos/Benzoyl Perox 1 applic TOPICAL BID 05/27/19 05/27/19 [Benzaclin Gel] Phentermine HCl [Adipex-P] 37.5 mg PO DAILY 05/27/19 05/27/19 Previous Rx's Medication Instructions Recorded Ketorolac [Toradol] 10 mg PO Q8HR #15 tab 05/27/19 Ondansetron Odt [Zofran Odt] 4 mg PO Q8HR PRN #10 tab 05/27/19 Tamsulosin [Flomax] 0.4 mg PO DAILY #7 cap 05/27/19 Allergies Allergy/AdvReac Type Severity Reaction Status Date / Time shellfish derived [Shellfish] Allergy Unknown Verified 05/27/19 11:23 Review of Systems ROS Statement: Those systems with pertinent positive or pertinent negative responses have been documented in the HPI. ROS Other: All systems not noted in ROS Statement are negative. Past Medical History Past Medical History: Thyroid Disorder History of Any Multi-Drug Resistant Organisms: None Reported Past Surgical History: No Surgical Hx Reported Past Anesthesia/Blood Transfusion Reactions: No Reported Reaction Past Psychological History: Anxiety, Depression Smoking Status: Never smoker Past Alcohol Use History: None Reported Past Drug Use History: None Reported - Past Family History Mother Family Medical History: Cancer General Exam Limitations: no limitations General appearance: alert, in no apparent distress Head exam: Present: atraumatic, normocephalic, normal inspection Eye exam: Present: normal appearance, PERRL, EOMI. Absent: scleral icterus, conjunctival injection, periorbital swelling Neck exam: Present: normal inspection. Absent: tenderness, meningismus, lymphadenopathy Respiratory exam: Present: normal lung sounds bilaterally. Absent: respiratory distress, wheezes, rales, rhonchi, stridor Cardiovascular Exam: Present: normal rhythm, tachycardia, normal heart sounds. Absent: systolic murmur, diastolic murmur, rubs, gallop, clicks GI/Abdominal exam: Present: soft, tenderness (Left-sided), normal bowel sounds. Absent: distended, guarding, rebound, rigid Back exam: Present: CVA tenderness (L). Absent: CVA tenderness (R) Neurological exam: Present: alert, oriented X3 Skin exam: Present: warm, dry, intact, normal color. Absent: rash Course Vital Signs 05/27/19 05/27/19 10:29 12:54 Temperature 98.1 F Pulse Rate 116 H 88 Respiratory 18 18 Rate Blood Pressure 129/84 117/84 O2 Sat by Pulse 97 99 Oximetry Medical Decision Making - Medical Decision Making 24-year-old female presented for left-sided flank pain. Patient's found to have 3 mm UVJ stone. Patient's pain is improved at this time. Patient we discharged stable condition there is no signs of infection urinalysis. Patient feels comfortable with discharge. - Lab Data Result diagrams: 05/27/19 10:53 05/27/19 10:53 Lab Results 05/27/19 05/27/19 05/27/19 Range/Units 10:53 10:53 14:15 WBC 6.2 (3.8-10.6) k/uL RBC 5.10 (3.80-5.40) m/uL Hgb 15.7 (11.4-16.0) gm/dL Hct 45.8 (34.0-46.0) % MCV 89.8 (80.0-100.0) fL MCH 30.8 (25.0-35.0) pg MCHC 34.3 (31.0-37.0) g/dL RDW 12.0 (11.5-15.5) % Plt Count 355 (150-450) k/uL Neutrophils % 71 % Lymphocytes % 20 % Monocytes % 5 % Eosinophils % 1 % Basophils % 0 % Neutrophils # 4.4 (1.3-7.7) k/uL Lymphocytes # 1.2 (1.0-4.8) k/uL Monocytes # 0.3 (0-1.0) k/uL Eosinophils # 0.1 (0-0.7) k/uL Basophils # 0.0 (0-0.2) k/uL Sodium 139 (137-145) mmol/L Potassium 4.4 (3.5-5.1) mmol/L Chloride 104 (98-107) mmol/L Carbon Dioxide 23 (22-30) mmol/L Anion Gap 12 mmol/L BUN 15 (7-17) mg/dL Creatinine 0.87 (0.52-1.04) mg/dL Est GFR (CKD-EPI)AfAm >90 (>60 ml/min/1.73 sqM) Est GFR (CKD-EPI)NonAf >90 (>60 ml/min/1.73 sqM) Glucose 107 H (74-99) mg/dL Calcium 10.4 H (8.4-10.2) mg/dL Total Bilirubin 0.7 (0.2-1.3) mg/dL AST 26 (14-36) U/L ALT 15 (4-34) U/L Alkaline Phosphatase 99 (38-126) U/L Total Protein 8.7 H (6.3-8.2) g/dL Albumin 5.0 (3.5-5.0) g/dL Amylase 61 (30-110) U/L Lipase 116 (23-300) U/L Urine Color Yellow Urine Appearance Cloudy H (Clear) Urine pH 6.0 (5.0-8.0) Ur Specific [place] 1.033 (1.001-1.035) Urine Protein 1+ H (Negative) Urine Glucose (UA) Negative (Negative) Urine Ketones 2+ H (Negative) Urine Blood Small H (Negative) Urine Nitrite Negative (Negative) Urine Bilirubin Negative (Negative) Urine Urobilinogen <2.0 (<2.0) mg/dL Ur Leukocyte Esterase Trace H (Negative) Urine RBC 38 H (0-5) /hpf Urine WBC 8 H (0-5) /hpf Ur Squamous Epith Cells 15 H (0-4) /hpf Urine Mucus Many H (None) /hpf Urine HCG, Qual (Not Detectd) 05/27/19 Range/Units 14:15 WBC (3.8-10.6) k/uL RBC (3.80-5.40) m/uL Hgb (11.4-16.0) gm/dL Hct (34.0-46.0) % MCV (80.0-100.0) fL MCH (25.0-35.0) pg MCHC (31.0-37.0) g/dL RDW (11.5-15.5) % Plt Count (150-450) k/uL Neutrophils % % Lymphocytes % % Monocytes % % Eosinophils % % Basophils % % Neutrophils # (1.3-7.7) k/uL Lymphocytes # (1.0-4.8) k/uL Monocytes # (0-1.0) k/uL Eosinophils # (0-0.7) k/uL Basophils # (0-0.2) k/uL Sodium (137-145) mmol/L Potassium (3.5-5.1) mmol/L Chloride (98-107) mmol/L Carbon Dioxide (22-30) mmol/L Anion Gap mmol/L BUN (7-17) mg/dL Creatinine (0.52-1.04) mg/dL Est GFR (CKD-EPI)AfAm (>60 ml/min/1.73 sqM) Est GFR (CKD-EPI)NonAf (>60 ml/min/1.73 sqM) Glucose (74-99) mg/dL Calcium (8.4-10.2) mg/dL Total Bilirubin (0.2-1.3) mg/dL AST (14-36) U/L ALT (4-34) U/L Alkaline Phosphatase (38-126) U/L Total Protein (6.3-8.2) g/dL Albumin (3.5-5.0) g/dL Amylase (30-110) U/L Lipase (23-300) U/L Urine Color Urine Appearance (Clear) Urine pH (5.0-8.0) Ur Specific [place] (1.001-1.035) Urine Protein (Negative) Urine Glucose (UA) (Negative) Urine Ketones (Negative) Urine Blood (Negative) Urine Nitrite (Negative) Urine Bilirubin (Negative) Urine Urobilinogen (<2.0) mg/dL Ur Leukocyte Esterase (Negative) Urine RBC (0-5) /hpf Urine WBC (0-5) /hpf Ur Squamous Epith Cells (0-4) /hpf Urine Mucus (None) /hpf Urine HCG, Qual Not Detected (Not Detectd) Disposition Clinical Impression: Ureteral calculus, left Disposition: HOME SELF-CARE Condition: Stable Instructions (If sedation given, give patient instructions): Kidney Stones (ED) Additional Instructions: Please return to the Emergency Department if symptoms worsen or any other con cerns. Prescriptions: Tamsulosin [Flomax] 0.4 mg PO DAILY #7 cap Ketorolac [Toradol] 10 mg PO Q8HR #15 tab Ondansetron Odt [Zofran Odt] 4 mg PO Q8HR PRN #10 tab PRN Reason: Nausea Is patient prescribed a controlled substance at d/c from ED?: No Referrals: None,Stated [Primary Care Provider] - 1-2 days Andreas Barajas MD [STAFF PHYSICIAN] - 1-2 days Time of Disposition: 15:03
[2019-05-27 11:15] LABS: Basophils % (A) 0 %; Eosinophils # (A) 0.1 k/uL (0-0.7); Eosinophils % (A) 1 %; HCT 45.8 % (34.0-46.0); HGB 15.7 gm/dL (11.4-16.0); Lymphocytes # (A) 1.2 k/uL (1.0-4.8); Lymphocytes % (A) 20 %; MCH 30.8 pg (25.0-35.0); MCHC 34.3 g/dL (31.0-37.0); MCV 89.8 fL (80.0-100.0); Monocytes # (A) 0.3 k/uL (0-1.0); Monocytes % (A) 5 %; Neutrophils # (A) 4.4 k/uL (1.3-7.7); Neutrophils % (A) 71 %; Platelet Count 355 k/uL (150-450); WBC 6.2 k/uL (3.8-10.6)
[2019-05-27 11:30] LABS: ALT 15 U/L (4-34); AST 26 U/L (14-36); African American GFR (CKD) >90 (>60 ml/min/1.73 sqM); Alkaline Phosphatase 99 U/L (38-126); Amylase 61 U/L (30-110); Anion Gap 12 mmol/L; Blood Urea Nitrogen 15 mg/dL (7-17); Calcium 10.4 mg/dL (8.4-10.2); Carbon Dioxide 23 mmol/L (22-30); Chloride 104 mmol/L (98-107); Glucose 107 mg/dL (74-99); Non-African American GFR(CKD) >90 (>60 ml/min/1.73 sqM); Potassium 4.4 mmol/L (3.5-5.1); Sodium 139 mmol/L (137-145); Total Bilirubin 0.7 mg/dL (0.2-1.3); Total Protein 8.7 g/dL (6.3-8.2)
--- NOTE | 2019-05-27 11:38 | CT ---
EXAMINATION TYPE: CT abdomen pelvis wo con DATE OF EXAM: 05/27/2019 COMPARISON: None HISTORY: Left flank pain CT DLP: 998.3 mGycm Automated exposure control for dose reduction was used. TECHNIQUE: Helical acquisition of images was performed from the lung bases through the pelvis. FINDINGS: Evaluation of the hollow and solid viscera is limited secondary to lack of intravenous and oral contrast. LUNG BASES: No significant abnormality is appreciated. LIVER/GB: No significant abnormality is appreciated in the unenhanced liver. Layering biliary sludge and few punctate calculi are seen within the gallbladder. PANCREAS: Unremarkable unenhanced morphology. SPLEEN: No splenomegaly. ADRENALS: No significant abnormality is seen. KIDNEYS: There are 5 nonobstructing left renal calculi measuring up to 4 mm. There are 4 right nonobs tructing renal calculi measuring up to 3 mm. There is a 3 mm distal left ureteral calculus located ap proximately 1 cm from the left ureterovesicular junction creating mild left-sided hydroureteronephros is. FREE AIR: No free air is visualized ADENOPATHY: No greater than 1 cm short axis lymph node is seen in the abdomen or pelvis given the li mitation of lack of intravenous contrast. OSSEOUS STRUCTURES: Nonspecific sclerotic focus measures 4 mm in the right hemisacrum. Old healed fr acture deformity of the transverse process of L1 on the right. Very minimal S-shaped scoliosis of the thoracolumbar spine may be positional. BOWEL: Few very small sigmoid diverticular questioned although limited without oral contrast. No johanny rounding inflammatory fat stranding. High density in the appendix could represent small appendicolith s or inspissated debris. No periappendiceal fat stranding. No CT evidence of acute appendicitis. No d ilated large or small bowel. OTHER: Follicular and/or cystic changes are seen in the bilateral ovaries. Left ovary appears slightl y larger than the right. IMPRESSION: 1. OBSTRUCTING 3 MM LEFT DISTAL URETERAL CALCULUS LOCATED APPROXIMATELY 1 CM PROXIMAL TO THE LEFT URE TEROVESICULAR JUNCTION THAT RESULTS IN MILD LEFT-SIDED HYDROURETERONEPHROSIS. 2. BILATERAL NONOBSTRUCTING RENAL CALCULI. 3. SLIGHTLY ASYMMETRIC SIZE OF THE OVARIES, LEFT GREATER THAN RIGHT AND FOLLICULAR AND/OR CYSTIC JOHNSON GES OF THE BILATERAL OVARIES. IF THERE IS FURTHER CONCERN PELVIC ULTRASOUND COULD BE PERFORMED. 4. HIGH DENSITY IN THE APPENDIX COULD REPRESENT SMALL APPENDICOLITHS OR INSPISSATED DEBRIS. NO CT EV IDENCE OF ACUTE APPENDICITIS.
[2019-05-27] MEDS ORDERED: SODIUM CHLORIDE 0.9% 1,000 ML IV ONE (12:13)
[2019-05-27] MEDS ORDERED: MORPHINE SULFATE 4 MG/ML SYRINGE IVP STA ×2 (12:13→13:15)
[2019-05-27 12:54] VITALS: BP 117/84; PULSE 88
[2019-05-27] MEDS ORDERED: TAMSULOSIN 0.4 MG CAP.ER.24H PO STA (13:15)
[2019-05-27 14:38] LABS: Appearance,Urine Cloudy (Clear); Bilirubin,Urine Negative (Negative); Blood,Urine Small (Negative); Color,Urine Yellow; Glucose,Urine (UA) Negative (Negative); Ketones,Urine 2+ (Negative); Leukocyte Esterase,Urine Trace (Negative); Mucus,Urine Many /hpf; Nitrite,Urine Negative (Negative); Protein,Urine 1+ (Negative); RBC,Urine 38 /hpf (0-5); Specific Gravity,Urine 1.033 (1.001-1.035); Squamous Epithelial Cell,Urine 15 /hpf (0-4); Urobilinogen,Urine <2.0 mg/dL (<2.0); WBC,Urine 8 /hpf (0-5)
[2019-05-27] MEDS ORDERED: ACET/COD 300 MG/30 MG STARTER PACK 6 TAB BTL PO STA (15:03)
== END 2019-05-27 15:12 | disposition home or self-care (01) ==
LOC: EC 10:25
DX: N13.2 Hydronephrosis with renal and ureteral calculous obstruction (principal); Z79.899 Other long term (current) drug therapy; Z91.013 Allergy to seafood
CPT/HCPCS: 36415; 80053; 82150; 83690; 85025; 81001; 81025; 74176; 99284; 96374; 96375 ×2; 96376 ×2; 96361 ×3; J2270; J2405; J1885

== ENCOUNTER 2020-06-02 06:05 | Inpatient (IN) | payer BC ==
[2020-06-02] MEDS ORDERED: OXYTOCIN 10 UNIT/ML 1 ML VIAL IM PRN (06:18)
[2020-06-02] MEDS ORDERED: LIDOCAINE 0.5% (PF) 5 MG/ML (50 ML SDV) SQ PRN (06:18)
[2020-06-02] MEDS ORDERED: CARBOPROST TROMETHAMINE 250 MCG/ML 1 ML AMP IM PRN (06:18)
[2020-06-02] MEDS ORDERED: TERBUTALINE 1 MG/ML VIAL SQ PRN (06:18)
[2020-06-02] MEDS ORDERED: METHYLERGONOVINE 0.2 MG/ML 1 ML AMP IM PRN (06:18)
[2020-06-02] MEDS ORDERED: OXYTOCIN 30 UNITS/500 ML NS 30 UNIT in SALINE 1 500ML.BAG IV SCH (06:30)
[2020-06-02] MEDS: LACTATED RINGERS 1,000 ML IV SCH ×2 (06:34→09:01)
[2020-06-02 06:59] LABS: Basophils % (A) 0 %; Eosinophils # (A) 0.1 k/uL (0-0.7); Eosinophils % (A) 2 %; HCT 40.9 % (34.0-46.0); HGB 13.8 gm/dL (11.4-16.0); Lymphocytes # (A) 1.5 k/uL (1.0-4.8); Lymphocytes % (A) 22 %; MCH 31.6 pg (25.0-35.0); MCHC 33.7 g/dL (31.0-37.0); MCV 93.8 fL (80.0-100.0); Mean Platelet Volume 8.7; Monocytes # (A) 0.3 k/uL (0-1.0); Monocytes % (A) 4 %; Neutrophils # (A) 4.8 k/uL (1.3-7.7); Neutrophils % (A) 71 %; Platelet Count 242 k/uL (150-450); RBC 4.36 m/uL (3.80-5.40); RDW 13.6 % (11.5-15.5); WBC 6.7 k/uL (3.8-10.6)
--- NOTE | 2020-06-02 08:17 | P.HPOB ---
History of Present Illness H&P Date: 06/02/20 Chief Complaint: Here for induction of labor This is a 25-year-old white female 2 para 1001 EDC 06/09/2020 at 39 weeks gestation. Patient presents this morning for induction of labor with favorable cervix. Fetus is been active throughout the . She denies vaginal bleeding or fluid leakage. history blood type is B+, rubella status immune. Pap smear, gonorrhea and chlamydia cultures, urine culture, hepatitis B surface antigen, HIV testing, group B strep cultures all negative. One-hour Glucola 102. Past medical history is negative. Past surgical history negative. Current medications vitamins. ALLERGIES shellfish, blueberries, peaches. NO KNOWN DRUG ALLERGIES. Social history patient is , she is a nonsmoker, she denies alcohol or drug use. On exam she is 5 foot 6 inches, 230 pounds, blood pressure 142/90 on admission. Vital signs are stable and she is afebrile. General physical exam is within normal limits. Cervix is 5 cm dilated, 80% effaced, -2 to -1 station, vertex presentation. Artificial amniorrhexis reveals clear fluid. heart rate is consistent with reactive NST. Impression: 39 week intrauterine , here for induction of labor, all signs reassuring. Plan: Close maternal and surveillance. Oxytocin per hospital protocol. Analgesic options reviewed. Anticipate normal spontaneous vaginal delivery. Review of Systems Constitutional: Reports as per HPI Past Medical History Past Medical History: Thyroid Disorder Additional Past Medical History / Comment(s): hx kidney stone History of Any Multi-Drug Resistant Organisms: None Reported Past Surgical History: No Surgical Hx Reported Past Anesthesia/Blood Transfusion Reactions: No Reported Reaction Past Psychological History: Anxiety, Depression Smoking Status: Former smoker Past Alcohol Use History: None Reported Past Drug Use History: None Reported - Past Family History Mother Family Medical History: Cancer Medications and Allergies Home Medications Medication Instructions Recorded Confirmed Type Aspirin 81 mg PO DAILY 06/02/20 06/02/20 History Pnv No.95/Ferrous Fum/Folic AC 1 tab PO DAILY 06/02/20 06/02/20 History [ Multivitamin Tablet] Allergies Allergy/AdvReac Type Severity Reaction Status Date / Time blueberry Allergy Anaphylaxis Verified 06/02/20 06:13 peach Allergy Anaphylaxis Verified 06/02/20 06:13 shellfish derived [Shellfish] Allergy Unknown Verified 06/02/20 06:13 Exam Vital Signs Temp Pulse Resp BP 06/02/20 06:23 98.0 F 104 H 16 142/77 Intake and Output 06/01/20 06/02/20 06/02/20 22:59 06:59 14:59 Other: Weight 104.326 kg See dictation under HPI please Results Result Diagrams: 06/02/20 06:25 Assessment and Plan Assessment: 39 week intrauterine , favorable cervix, here for induction of labor. All signs reassuring. Plan: Analgesic options reviewed. Close maternal and surveillance. Oxytocin per hospital protocol. Anticipate normal spontaneous vaginal delivery. Time with Patient: Less than 30
[2020-06-02] MEDS ORDERED: ROPIVACAINE 5MG/ML 20ML VIAL ONE (08:34)
[2020-06-02] MEDS ORDERED: fentaNYL (PF) 50 MCG/ML 5 ML AMP ONE (08:34)
[2020-06-02] MEDS ORDERED: SODIUM CHLORIDE 0.9% 100 ML BAG ONE (08:34)
[2020-06-02] MEDS ORDERED: diphenhydrAMINE 25 MG CAP PO PRN (11:31)
[2020-06-02] MEDS ORDERED: diphenhydrAMINE 50 MG/ML 1 ML VIAL IVP PRN ×2 (11:31)
[2020-06-02] MEDS ORDERED: SIMETHICONE 80 MG CHEWABLE PO PRN (11:31)
[2020-06-02] MEDS ORDERED: diphenhydrAMINE 50 MG CAP PO PRN (11:31)
[2020-06-02] MEDS ORDERED: HYDROCORTISONE 2.5% RECTAL CREAM 30 GM TUBE RECTAL PRN (11:31)
[2020-06-02] MEDS ORDERED: diphenhydrAMINE ELIXIR 25 MG/10 ML CUP PO PRN (11:31)
[2020-06-02] MEDS ORDERED: ZOLPIDEM 5 MG TAB PO PRN (11:31)
[2020-06-02] MEDS ORDERED: BENZOCAINE/MENTHOL SPRAY 1 GM/SPRAY AEROSOL TOPICAL PRN (11:31)
[2020-06-02] MEDS ORDERED: LANOLIN CREAM 5 GM TUBE TOPICAL PRN (11:31)
--- NOTE | 2020-06-02 11:31 | P.PROBDLV ---
Vaginal Delivery Note - . Vaginal Delivery Note: This is a 25-year-old white female 2 para 1001 EDC 06/09/2020 at 39 weeks gestation who presented this morning for induction with favorable cervix. Fetus is been active throughout the . Blood type B positive, group B strep cultures negative, rubella status immune. Please see dictated history and physical for details. They, oxytocin started and titrated. Artificial amniorrhexis revealed clear fluid. Epidural was placed per her request. heart tones were reassuring throughout the first and second stages of labor. She was judged to be completely dilated with a strong urge to push. Perineal body was prepped and draped in usual sterile fashion. With excellent maternal effort and control, 's head delivered occiput anterior and restituted accordingly. There was no nuchal cord. The oropharynx, nasopharynx, and external nares were all bulb suctioned on the perineal body. Patient is officially delivered of a liveborn female at 1113 hours. Umbilical cord was doubly clamped and ligated, she was handed to waiting nurses for evaluation where scores of 9 and 9 at one and 5 minutes respectively were given. The placenta delivered spontaneously, it was inspected and noted to be intact with trivascular cord. Bleeding was slightly brisk, immediately palliated by 1 IM injection of Methergine. At this time careful inspection of the cervix, vagina, perineum, periurethral, and perirectal areas revealed a very small midline first-degree laceration. This was repaired in the usual fashion using a single [id number] suture of rupture he, 30. Uterus is firm and in the midline, symmetric and 18 week size upon completion of delivery. All sponge needle and enhancement counts are correct. Patient is allowed to begin the bonding experience in the LDR.
[2020-06-02] MEDS: IBUPROFEN 600 MG TAB PO SCH ×3 (13:03→20:03)
[2020-06-02] MEDS ORDERED: LIDOCAINE 1% (10MG/ML) FOR IV START INTRADERMA PRN (13:27)
[2020-06-02] MEDS ORDERED: LACTATED RINGERS 1,000 ML IV SCH (13:27)
[2020-06-02] MEDS ORDERED: HYDROmorphone 0.5 MG/0.5 ML SYRINGE IVP PRN (13:27)
[2020-06-02] MEDS ORDERED: DEXAMETHASONE SOD PHOSPHATE 4 MG/ML 1 ML VIAL IV ONE (13:27)
[2020-06-02] MEDS ORDERED: MIDAZOLAM 2 MG/2 ML VIAL IV PRN (13:27)
[2020-06-02] MEDS: ACETAMINOPHEN TAB 325 MG TAB PO PRN ×2 (18:49→23:40)
[2020-06-02] MEDS: SENNOSIDES-DOCUSATE SODIUM 1 EACH TAB PO SCH (20:02)
[2020-06-03] MEDS: IBUPROFEN 600 MG TAB PO SCH ×2 (02:23→08:13)
[2020-06-03] MEDS: ACETAMINOPHEN TAB 325 MG TAB PO PRN (04:41)
--- NOTE | 2020-06-03 07:50 | P.DS ---
Providers Date of admission: 06/02/20 06:05 Expected date of discharge: 06/03/20 Attending physician: Mine Pang Primary care physician: Stated None Hospital Course: This is a 25-year-old female 2 para 1001 EDC 06/09/2020 at 39 weeks gestation. Patient presented for induction with favorable multiparous cervix. unremarkable, group B strep cultures negative, blood type B positive, rubella status immune. Please see dictated history and physical for details. Artificial amniorrhexis revealed clear fluid. Oxytocin was started and titrated per hospital protocol. Patient requested and received an epidural. She went on to smoothly and quickly deliver vaginally a liveborn female infant with scores of 9 and 9 at one and 5 minutes respectively. Infant weighed 7 lbs. 10 oz. or 3450 g. There was a small first-degree perineal laceration easily repaired. Total estimated blood loss 300 mL's. Please see dictated delivery note for details. This morning the patient is doing well. She is voiding, ambulating, passing flatus without difficulty. Vital signs are stable and she is afebrile. Fundus is firm and in the midline, symmetric and 18 week size. Extremities are negative for edema. Breasts are not engorged. Perineal body is clean and dry. Patient is judged to be in very good condition for discharge home. Lincoln is doing well also. Patient will follow-up with me in the office in 6 weeks. I have reminded her no intercourse, tampons or douching. She will use [id number] Advil or Aleve, or Motrin as needed for pain. She will call with any fevers shakes or chills, foul smelling or copious lochia, with the passage of large blood clots, with any pain not alleviated by [id number] products, or indeed with any concerns. Assessment: Doing well day #1 Patient Condition at Discharge: Good Plan - Discharge Summary Discharge Rx Participant: No New Discharge Prescriptions: No Action Pnv No.95/Ferrous Fum/Folic AC [ Multivitamin Tablet] 1 tab PO DAILY Aspirin 81 mg PO DAILY Discharge Medication List Aspirin 81 mg PO DAILY 06/02/20 [History] Pnv No.95/Ferrous Fum/Folic AC [ Multivitamin Tablet] 1 tab PO DAILY 06/02/20 [History] Follow up Appointment(s)/Referral(s): Mine Pang MD [STAFF PHYSICIAN] - 2 Weeks Discharge Disposition: HOME SELF-CARE
[2020-06-03 07:52] VITALS: RESP 17
[2020-06-03 11:09] VITALS: BP 117/75; PULSE 68; TEMP 98.4
[2020-06-03] MEDS: SENNOSIDES-DOCUSATE SODIUM 1 EACH TAB PO SCH (12:40)
== END 2020-06-03 12:38 | disposition home or self-care (01) | DRG 807 ==
LOC: 4FBP 06:05
PROVIDERS: ADMIT Obstetrics & Gynecology; ATTEND Obstetrics & Gynecology
PROC: 00HU33Z Insertion of Infusion Device into Spinal Canal, Percutaneous Approach (ICD-10-PCS; principal; 2020-06-02)
PROC: 10907ZC Drainage of Amniotic Fluid, Therapeutic from Products of Conception, Via Natural or Artificial Opening (ICD-10-PCS; principal; 2020-06-02)
PROC: 3E0R3BZ Introduction of Anesthetic Agent into Spinal Canal, Percutaneous Approach (ICD-10-PCS; principal; 2020-06-02)
PROC: 0HQ9XZZ Repair Perineum Skin, External Approach (ICD-10-PCS; principal; 2020-06-02)
PROC: 10E0XZZ Delivery of Products of Conception, External Approach (ICD-10-PCS; principal; 2020-06-02)
PROC: 3E033VJ Introduction of Other Hormone into Peripheral Vein, Percutaneous Approach (ICD-10-PCS; principal; 2020-06-02)
DX: O70.0 First degree perineal laceration during delivery (principal); Z37.0 Single live birth; O99.284 Endocrine, nutritional and metabolic diseases complicating childbirth; E07.9 Disorder of thyroid, unspecified; Z3A.39 39 weeks gestation of pregnancy; Z79.82 Long term (current) use of aspirin; Z79.899 Other long term (current) drug therapy; Z91.013 Allergy to seafood; Z91.018 Allergy to other foods; Z87.442 Personal history of urinary calculi; Z87.891 Personal history of nicotine dependence; Z86.59 Personal history of other mental and behavioral disorders; Z80.9 Family history of malignant neoplasm, unspecified
CPT/HCPCS: 85025; 86850; 86900; 86901

== ENCOUNTER 2020-09-24 11:37 | Day surgery (SDC) | payer BC ==
[2020-09-22 10:41] VITALS: BMI 27.7
[~2020-09-24 11:37] MED LIST: DEXAMETHASONE SOD PHOSPHATE 4 MG/ML 1 ML VIAL IV ONE; HYDROmorphone 0.5 MG/0.5 ML SYRINGE IVP PRN; LACTATED RINGERS 1,000 ML IV SCH; ONDANSETRON 4 MG/2 ML VIAL IVP ONE
--- NOTE | 2020-09-24 12:05 | XR ---
EXAMINATION TYPE: XR KUB DATE OF EXAM: 09/24/2020 11:56 AM CLINICAL HISTORY: Kidney stones TECHNIQUE: Single supine KUB image of the abdomen is obtained. COMPARISON: None. FINDINGS: Scattered gas is seen in non-distended small bowel loops. Gas and fecal material is seen in non-distended colon. There are multiple radiopaque densities overlying both renal shadows measuring up to 2 mm on the right and 4 mm on the left. Radiopaque densities are seen adjacent to the right L3 vertebral body measuring up to 6 mm, possibly within the right ureter. There are multiple calcifications in the pelvis most likely representing phleboliths. Intrauterine co ntraceptive device is present. IMPRESSION: Bilateral nephrolithiasis with possible right ureteral calculus. Please correlate clinically.
[2020-09-24] MEDS ORDERED: LACTATED RINGERS 1,000 ML IV ONE ×2 (12:07→15:02)
[2020-09-24] MEDS ORDERED: ONDANSETRON 4 MG/2 ML VIAL ONE (12:14)
[2020-09-24] MEDS ORDERED: MIDAZOLAM 2 MG/2 ML VIAL IVP ONE (12:53)
--- NOTE | 2020-09-24 12:53 | P.HPIHPCON ---
History of Present Illness H&P Date: 09/24/20 Chief Complaint: Ureteral calculi This is a 25-year-old female with history of a 1.6 cm right ureteral calculi, and bilateral nonobstructive stones. She is symptomatic from her stones. Discussed with her the option of doing a right-sided ureteroscopy to address her ureteral stone. Discussed the risks which includes but not limited to bleeding, infection, injury to the ureter. Discussed that if the stone is impacted it might need to be staged procedure. Discussed we will only address her right- sided stone at this time, as these is the obstructive stone. She understood all the risk and agreed to proceed with right-sided ureteroscopy, with holmium laser lithotripsy, stone basketing and stent placement Consent for Procedure: I have explained the operation/procedure to the patient, including the risks, benefits, side effects, alternative therapies (including not receiving the proposed treatment or service), the likelihood of the patient achieving his/her goals, and potential recuperation problems for the procedure/sedation/analgesia, as well as any blood products, if indicated. I also explained to the patient the risks, benefits and side effects of the alternatives, as well as the risks related to not receiving the proposed procedure, care, treatment, or services. Past Medical History Past Medical History: Thyroid Disorder Additional Past Medical History / Comment(s): hx kidney stone History of Any Multi-Drug Resistant Organisms: None Reported Past Surgical History: No Surgical Hx Reported Past Anesthesia/Blood Transfusion Reactions: No Reported Reaction Smoking Status: Former smoker - Past Family History Mother Family Medical History: Cancer Medications and Allergies Home Medications Medication Instructions Recorded Confirmed Type HYDROcodone/APAP 5-325MG [[place] 1 tab PO Q4HR PRN 09/22/20 09/22/20 History 5-325] Ibuprofen [Motrin] 600 mg PO Q8HR PRN 09/22/20 09/22/20 History Tamsulosin HCl [Flomax] 0.4 mg PO DAILY 09/22/20 09/22/20 History Allergies Allergy/AdvReac Type Severity Reaction Status Date / Time blueberry Allergy Anaphylaxis Verified 09/22/20 10:33 peach Allergy Anaphylaxis Verified 09/22/20 10:33 shellfish derived [Shellfish] Allergy Unknown Verified 09/22/20 10:33 Surgical - Exam Vital Signs Temp Pulse Resp BP Pulse Ox 97.8 F 80 18 115/74 100 07/22/21 12:05 09/24/20 12:05 09/24/20 12:05 09/24/20 12:05 09/24/20 12:05 - General well developed, well nourished, no distress - Eyes PERRL, normal ocular movement - Respiratory normal expansion, normal respiratory effort - Abdomen Abdomen: soft, non tender - Psychiatric oriented to time, oriented to person, oriented to place Assessment and Plan Assessment: 25-year-old female history of a 1.6 cm right ureteral stone, bilateral nonobstructive stones -Or for right-sided ureteroscopy, with holmium laser lithotripsy, stone basketing and stent placement
[2020-09-24] MEDS ORDERED: KETOROLAC 15 MG/ML 1 ML VIAL ONE (13:55)
[2020-09-24] MEDS ORDERED: PROPOFOL 10 MG/ML 20 ML VIAL IV ONE (13:55)
[2020-09-24] MEDS ORDERED: fentaNYL (PF) 50 MCG/ML 2 ML AMP ONE (13:55)
[2020-09-24] MEDS ORDERED: MIDAZOLAM 2 MG/2 ML VIAL ONE (13:55)
[2020-09-24] MEDS ORDERED: IOPAMIDOL-370 50ML BTL MISCELLANE ONE ×2 (14:20)
--- NOTE | 2020-09-24 15:20 | P.OP ---
Date of Procedure: 09/24/20 Preoperative Diagnosis: Right ureteral, renal calculi Postoperative Diagnosis: Same Procedure(s) Performed: Cystoscopy, right ureteroscopy, holmium laser lithotripsy, stone basketing and stent insertion Implants: 6-Cay[place] Islander by 26 cm stent Anesthesia: JOAO Surgeon: Josué Ely Estimated Blood Loss (ml): 5 Pathology: other (right ureteral stone) Condition: stable Disposition: PACU Indications for Procedure: This is a 25-year-old female with history of a 1.6 cm right ureteral calculi, and bilateral nonobstructive stones. She is symptomatic from her stones. Discussed with her the option of doing a right-sided ureteroscopy to address her ureteral stone. Discussed the risks which includes but not limited to bleeding, infection, injury to the ureter. Discussed that if the stone is impacted it might need to be staged procedure. Discussed we will only address her right- sided stone at this time, as these is the obstructive stone. She understood all the risk and agreed to proceed with right-sided ureteroscopy, with holmium laser lithotripsy, stone basketing and stent placement Operative Findings: To be stones within the distal ureter, significant ureteral edema near the stone impaction. 2 renal stones one within the upper pole that was dusted, an additional stone in the lower pole that I was not able to laser due to the acute angle of the calyx Description of Procedure: Patient was brought to the operating room, general anesthesia was induced. She was prepped and draped in sterile fashion and placed in a dorsal lithotomy position cystoscopy fitted with a 21-[place] Islander sheath was inserted per urethra, cystoscopy was performed which showed no abnormality within the bladder. Attention was then carried to the right ureteral orifice which was intubated with an open-ended catheter, retrograde pyelogram was performed which showed filling defect along the course of the distal ureter with a dilated ureter proximal to that. At this time a sensor wire was advanced through the catheter and the catheter was removed with the wire in place. Next a semirigid ureteroscope was inserted per urethra and advanced up the right ureteral orifice, 3 distal ureteral stones were encountered. The stones were fragmented using the holmium laser. Stone fragments were removed using the stone basket. Of note at the site of stone impaction there was significant ureteral edema. At this time the ureteroscope was advanced all the way up to the proximal ureter, and no sizable fragments or additional stones were seen, pullback ureteroscopy was performed which showed no injury to the ureter or any sizable fragments. At this time the ureteral access sheath was passed over the wire and into the proximal ureter under fluoroscopy. Next a flexible ureteroscope was inserted through the access sheath, renoscopy was performed which showed a large stone within the upper pole. The stone was dusted using the holmium laser. On renoscopy additional stone was partially visualized in the lower pole, upon insertion over the holmium laser fiber I was not able to visualize the stone. I attempted to basket the stone but was not able to given the acute angle of the lower pole calyx. Repeat renoscopy showed no additional stones or injury to the kidney. Pullback ureteroscopy was performed which showed no injury to the ureter or sizable fragments. At this time a ureteral stent was passed over the wire. The proximal curl was visualized on fluoroscopy, the distal curl was visualized using the cystoscope. The bladder was emptied at the end of the case. Patient tolerated the procedure well was taken to PACU in stable condition
[2020-09-24 15:21] VITALS: TEMP 98.4
[2020-09-24 15:48] VITALS: RESP 16
--- NOTE | 2020-09-24 16:06 | FL ---
Fluoroscopy HISTORY: Right ureteral stent and lithotripsy 31 seconds fluoroscopy time supplied to the referring clinician. 3 intraoperative C-arm images docum ent the procedure. See dictated report from urology.
[2020-09-24 17:16] VITALS: BP 114/81; PULSE 59
== END 2020-09-24 17:18 | disposition home or self-care (01) ==
LOC: OR 11:37
PROVIDERS: ATTEND Urology
DX: N20.2 Calculus of kidney with calculus of ureter (principal); E07.9 Disorder of thyroid, unspecified; F41.8 Other specified anxiety disorders; Z87.891 Personal history of nicotine dependence; Z87.442 Personal history of urinary calculi
CPT/HCPCS: 52356; 81025; 84132; 82365; 74420; 74018; C2625; C1758; C1769; J2250; J1100; J0690; J2405; J3010; J1885; J2704; Q9967

== ENCOUNTER → 2020-10-01 | Outpatient (CLI) | payer BC ==
[2020-10-01 15:17] LABS: Basophils % (A) 1 %; Eosinophils # (A) 0.1 k/uL (0-0.7); Eosinophils % (A) 3 %; HCT 42.3 % (34.0-46.0); HGB 14.6 gm/dL (11.4-16.0); Lymphocytes # (A) 1.2 k/uL (1.0-4.8); Lymphocytes % (A) 22 %; MCHC 34.5 g/dL (31.0-37.0); MCV 95.7 fL (80.0-100.0); Mean Platelet Volume 8.3; Monocytes # (A) 0.3 k/uL (0-1.0); Monocytes % (A) 5 %; Neutrophils # (A) 3.5 k/uL (1.3-7.7); Neutrophils % (A) 67 %; Platelet Count 278 k/uL (150-450); RBC 4.42 m/uL (3.80-5.40); RDW 12.5 % (11.5-15.5); WBC 5.3 k/uL (3.8-10.6)
[2020-10-01 15:26] LABS: African American GFR (CKD) >90 (>60 ml/min/1.73 sqM); Anion Gap 9 mmol/L; Blood Urea Nitrogen 7 mg/dL (7-17); Calcium 10.1 mg/dL (8.4-10.2); Carbon Dioxide 24 mmol/L (22-30); Chloride 105 mmol/L (98-107); Glucose 97 mg/dL (74-99); Non-African American GFR(CKD) >90 (>60 ml/min/1.73 sqM); Potassium 3.7 mmol/L (3.5-5.1); Sodium 138 mmol/L (137-145)
[2020-10-01 15:32] LABS: Appearance,Urine Cloudy (Clear); Bacteria,Urine Rare /hpf; Bilirubin,Urine Negative (Negative); Blood,Urine Large (Negative); Budding Yeast,Urine Few /hpf; Color,Urine Yellow; Glucose,Urine (UA) Negative (Negative); Hyaline Casts,Urine 8 /lpf (0-2); Ketones,Urine Trace (Negative); Leukocyte Esterase,Urine Large (Negative); Mucus,Urine Many /hpf; Nitrite,Urine Negative (Negative); PH, Urine 6.5 (5.0-8.0); Protein,Urine 1+ (Negative); RBC,Urine >182 /hpf (0-5); Specific Gravity,Urine 1.011 (1.001-1.035); Squamous Epithelial Cell,Urine 2 /hpf (0-4); Urobilinogen,Urine <2.0 mg/dL (<2.0); WBC,Urine 29 /hpf (0-5)
== END | disposition home or self-care (01) ==
LOC: LABPAT 14:39
PROVIDERS: ATTEND Urology
DX: Z01.812 Encounter for preprocedural laboratory examination (principal); N20.1 Calculus of ureter; R31.29 Other microscopic hematuria
CPT/HCPCS: 80048; 81001; 85025; 87086

== ENCOUNTER 2020-10-09 09:50 | Day surgery (SDC) | payer BC ==
[2020-10-06 14:43] VITALS: BMI 26.8
--- NOTE | 2020-10-09 10:19 | XR ---
EXAMINATION TYPE: XR KUB DATE OF EXAM: 10/09/2020 COMPARISON: 09/24/2020 HISTORY: Preop TECHNIQUE: One view abdominal series FINDINGS: The osseous structures are intact. The bowel gas pattern is nonspecific. Right-sided ureteral stent noted there is an intrauterine device. Calcifications within the left hemipelvis are stable. There is interval reduction in the amount calcifications within the right hemipelvis likely related to past u reteral stones. Bowel content obscures the overlying renal outlines. Suspect there are 2 small less t roberts 5 mm left renal calculi and residual 2 mm right renal calculus. IMPRESSION: 1. Nonspecific abdomen. 2. Bilateral nephrolithiasis. There is interval reduction in amount calcifications within the right l ower hemipelvis likely related to past ureteral stones.
[2020-10-09] MEDS ORDERED: LACTATED RINGERS 1,000 ML IV ONE ×2 (10:31→14:14)
[2020-10-09] MEDS ORDERED: ONDANSETRON 4 MG/2 ML VIAL ONE (10:38)
[2020-10-09] MEDS ORDERED: DEXAMETHASONE SOD PHOSPHATE 4 MG/ML 1 ML VIAL IVP ONE (10:41)
[2020-10-09] MEDS ORDERED: ONDANSETRON 4 MG/2 ML VIAL IVP ONE (10:41)
--- NOTE | 2020-10-09 13:16 | P.HPIHPCON ---
History of Present Illness H&P Date: 10/08/20 This is a 25-year-old female with history of a 1.6 cm right ureteral calculi, and bilateral nonobstructive stones. She underwent right-sided ureteroscopy on September 24. She presents today for bilateral ureteroscopy, holmium laser lithotripsy, right stent removal, left stent insertion. Discussed the risks which includes but not limited to bleeding, infection, injury to the ureter. She understood all the risk and agreed to proceed with bilateral ureteroscopy with holmium laser lithotripsy, stone basketing and right stent removal, left stent insertion Consent for Procedure: I have explained the operation/procedure to the patient, including the risks, benefits, side effects, alternative therapies (including not receiving the proposed treatment or service), the likelihood of the patient achieving his/her goals, and potential recuperation problems for the procedure/sedation/analgesia, as well as any blood products, if indicated. I also explained to the patient the risks, benefits and side effects of the alternatives, as well as the risks related to not receiving the proposed procedure, care, treatment, or services. Past Medical History Past Medical History: Thyroid Disorder Additional Past Medical History / Comment(s): Hx of kidney stone. History of Any Multi-Drug Resistant Organisms: None Reported Past Surgical History: No Surgical Hx Reported Additional Past Surgical History / Comment(s): Left kidney stone surgery, left ureteral stent placed. Past Anesthesia/Blood Transfusion Reactions: No Reported Reaction Past Psychological History: Anxiety, Depression Smoking Status: Former smoker Past Alcohol Use History: None Reported Additional Past Alcohol Use History / Comment(s): Quit smoking 4 yrs ago, smoked for 5-6 yrs, 1/2-1 PPD. Past Drug Use History: None Reported - Past Family History Mother Family Medical History: Cancer Medications and Allergies Home Medications Medication Instructions Recorded Confirmed Type Ketorolac [Toradol] 10 mg PO Q6HR PRN #15 tab 09/24/20 10/06/20 Rx Allergies Allergy/AdvReac Type Severity Reaction Status Date / Time blueberry Allergy Anaphylaxis Verified 10/06/20 14:34 peach Allergy Anaphylaxis Verified 10/06/20 14:34 shellfish derived [Shellfish] Allergy Unknown Verified 10/06/20 14:34 Surgical - Exam - General no distress, no pain - Eyes PERRL, normal ocular movement - ENT normal nares, normal mucosa - Respiratory normal expansion, normal respiratory effort
[2020-10-09] MEDS ORDERED: fentaNYL (PF) 50 MCG/ML 2 ML AMP ONE (13:28)
[2020-10-09] MEDS ORDERED: GLYCOPYRROLATE 0.2 MG/ML 2 ML VIAL ONE (13:28)
[2020-10-09] MEDS ORDERED: ROCURONIUM 10 MG/ML (5 ML VIAL) IV ONE (13:28)
[2020-10-09] MEDS ORDERED: MIDAZOLAM 2 MG/2 ML VIAL ONE (13:28)
[2020-10-09] MEDS ORDERED: NEOSTIGMINE 1 MG/ML 10 ML VIAL ONE (13:28)
[2020-10-09] MEDS ORDERED: SUCCINYLCHOLINE CHLORIDE 100 MG/5 ML SYR IV ONE (13:28)
[2020-10-09] MEDS ORDERED: LIDOCAINE 1% INJ 10MG/ML (20 ML MDV) ONE (13:28)
[2020-10-09] MEDS ORDERED: PROPOFOL 10 MG/ML 20 ML VIAL IV ONE (13:28)
[2020-10-09] MEDS ORDERED: IOPAMIDOL-370 50ML BTL MISCELLANE ONE (13:31)
--- NOTE | 2020-10-09 14:50 | P.OP ---
Date of Procedure: 10/09/20 Preoperative Diagnosis: Bilateral renal calculi Postoperative Diagnosis: Same Procedure(s) Performed: Cystoscopy, bilateral ureteroscopy, holmium laser lithotripsy, stone basketing, right stent removal, left stent placement Implants: 6-Kisw[place]ili by 24 cm stent on the left Anesthesia: JOAO Surgeon: Josué Ely Estimated Blood Loss (ml): 5 Pathology: other (bilateral renal calculi) Condition: stable Disposition: PACU Indications for Procedure: This is a 25-year-old female with history of a 1.6 cm right ureteral calculi, and bilateral nonobstructive stones. She underwent right-sided ureteroscopy on September 24. She presents today for bilateral ureteroscopy, holmium laser lithotripsy, right stent removal, left stent insertion. Discussed the risks which includes but not limited to bleeding, infection, injury to the ureter. She understood all the risk and agreed to proceed with bilateral ureteroscopy with holmium laser lithotripsy, stone basketing and right stent removal, left stent insertion Description of Procedure: Patient was brought to the operating room, general anesthesia was induced. She was prepped and draped in sterile fashion and placed in dorsal lithotomy position. Cystoscopy fitted with a 21-Kisw[place]ili sheath was inserted per urethra, cystoscopy was performed showed no abnormality within the bladder. Attention was then carried right ureteral orifice. The stent was grasped and removed to the meatus, next a sensor wire was advanced through the stent and the stent was removed with the wire in place. Next the flexible ureteroscope was passed over the wire into the proximal ureter, multiple small stones were seen in the proximal ureter. At this time a sensor wire was readvanced through the scope and the scope was withdrawn with the wire in place. Next a ureteral access sheath was passed over the wire, under fluoroscopy. Next the flexible ureteroscope was inserted through the access sheath, all stones measured less than 3 mm, those were basketed using the stone basket. Next the ureteroscope was advanced into the kidney, renoscopy was performed which showed at very small stone in the lower pole, also measured less than 3 mm. The stone was dusted using the holmium laser. Repeat renoscopy showed no additional fragments or injury to the kidney. Pullback ureteroscopy was performed showed no injury to the ureter or any ureteral fragments. At this time attention was carried to the left ureteral orifice, retrograde pyelogram was performed which showed no filling defect along the course of the ureter. Next a sensor wire was advanced through the scope and into the renal pelvis. I attempted to pass an access sheath over the wire but resistance was met at the mid ureter. At this time the flexible ureteroscope was passed over the wire and into the kidney, renoscopy was performed which showed multiple stones within the kidney, the largest was in the middle and the lower calyx, all stones were dusted using the holmium laser. Repeat renoscopy showed no additional stones or injury to the kidney. Pullback ureteroscopy showed a small stone within the proximal ureter. The stone was basketed and pulled out as the ureteroscope was withdrawn, no additional stones were seen along the course of the ureter or any injury to the ureter. At this time the cystoscope was reinserted and the left ureteral orifice was intubated with a sensor wire. Next a ureteral stent was passed over the wire, the proximal curl was visualized on fluoroscopy and distal curl was visualized using the cystoscope. The bladder was emptied at the end of the case. Patient tolerated procedure well was taken to PACU in stable condition
[2020-10-09 15:00] VITALS: TEMP 97.1
[2020-10-09] MEDS ORDERED: HYDROmorphone 0.5 MG/0.5 ML SYRINGE IVP ONE (15:22)
[2020-10-09 15:29] VITALS: RESP 16
[2020-10-09 15:55] VITALS: BP 119/80; PULSE 52
--- NOTE | 2020-10-12 12:51 | FL ---
EXAMINATION TYPE: FL urography retrograde DATE OF EXAM: 10/09/2020 COMPARISON: NONE HISTORY: Fluoroscopy TECHNIQUE: Fluoroscopy. FINDINGS: Fluoroscopic guidance was provided during procedure of 48 seconds. IMPRESSION: As Above.
== END 2020-10-09 16:16 | disposition home or self-care (01) ==
LOC: OR 09:50
PROVIDERS: ATTEND Urology
DX: N20.0 Calculus of kidney (principal); E07.9 Disorder of thyroid, unspecified; Z87.442 Personal history of urinary calculi; F41.8 Other specified anxiety disorders; Z87.891 Personal history of nicotine dependence; Z91.013 Allergy to seafood; Z91.018 Allergy to other foods
CPT/HCPCS: 52356; 52320; 82365; 74420; 74018; J1100; J0690; J2405; J1170; Q9967; 81025

== ENCOUNTER → 2022-04-06 | Outpatient (CLI) | payer BC ==
[2022-04-06 23:30] LABS: Basophils # (A) 0.04 X 10*3/uL (0.00-0.10); Basophils % (A) 0.8 %; Eosinophils # (A) 0.07 X 10*3/uL (0.04-0.35); Eosinophils % (A) 1.3 %; HCT 44.3 % (37.2-46.3); HGB 14.8 g/dL (12.0-15.0); Immature Grans, Automated 0.4 %; Lymphocytes # (A) 1.48 X 10*3/uL (0.90-5.00); Lymphocytes % (A) 28.2 %; MCH 31.8 pg (27.0-32.0); MCHC 33.4 g/dL (32.0-37.0); MCV 95.3 fL (80.0-97.0); Mean Platelet Volume 10.6 fL (9.5-12.2); Monocytes # (A) 0.36 X 10*3/uL (0.20-1.00); Monocytes % (A) 6.9 %; NRBC Per 100 WBC 0 /100 WBCS (0.0-0.0); Neutrophils # (A) 3.28 X 10*3/uL (1.80-7.70); Neutrophils % (A) 62.4 %; Platelet Count 259 X 10*3/uL (140-440); RBC 4.65 X 10*6/uL (4.10-5.20); RDW 11.9 % (11.5-14.5); WBC 5.25 X 10*3/uL (4.50-10.00)
== END | disposition home or self-care (01) ==
LOC: LABPAT 16:01
PROVIDERS: ATTEND Obstetrics & Gynecology
DX: Z30.2 Encounter for sterilization (principal)
CPT/HCPCS: 85025

== ENCOUNTER 2022-06-15 09:03 | Inpatient (IN) | payer BC ==
[2022-06-15 10:13] LABS: Amphetamine Screen,Urine Not Detected (NotDetected); Barbiturate Screen,Urine Not Detected (NotDetected); Benzodiazepines Screen,Urine Not Detected (NotDetected); Cocaine Screen,Urine Not Detected (NotDetected); Methadone Screen, Urine Not Detected (NotDetected); Opiate Screen,Urine Not Detected (NotDetected); Oxycodone Screen, Urine Not Detected (NotDetected); Phencyclidine Screen,Urine Not Detected (NotDetected); Tricyclic Antidepressant,Urine Not Detected (NotDetected); Urn Cannabinoid Scrn Not Detected (NotDetected)
--- NOTE | 2022-06-15 15:35 | ED ---
Psych HPI - General Source: patient, family Mode of arrival: ambulatory <Paige Feliciano - Last Filed: 06/15/22 15:34> <Ramiro Fan - Last Filed: 06/15/22 20:17> - General Chief Complaint: Psychiatric Symptoms Stated Complaint: mental health Time Seen by Provider: 06/15/22 13:48 - History of Present Illness Initial Comments: 27-year-old female presents emergency room and requesting psychiatric evaluation. States that over the past few months she has had extreme behavior. States that she swings back and forth from extremely manic behavior to depressed behavior. She makes poor choices. She does have thoughts of suicide however has not attempted anything. She does not take any medications. States that she has a strong family history of bipolar disorder. Denies concern for . Does admit to methamphetamine use, last of which was a couple weeks ago. Patient presents today stating that she needs psychiatric evaluation. (Paige Feliciano) - Related Data Home Medications Medication Instructions Recorded Confirmed No Known Home Medications 04/08/22 06/15/22 Allergies Allergy/AdvReac Type Severity Reaction Status Date / Time blueberry Allergy Anaphylaxis Verified 06/15/22 14:58 peach Allergy Anaphylaxis Verified 06/15/22 14:58 shellfish derived [Shellfish] Allergy Anaphylaxis Verified 06/15/22 14:58 Review of Systems ROS Other: All systems not noted in ROS Statement are negative. <Paige Feliciano - Last Filed: 06/15/22 15:34> ROS Other: All systems not noted in ROS Statement are negative. <Ramiro Fan - Last Filed: 06/15/22 20:17> ROS Statement: Those systems with pertinent positive or pertinent negative responses have been documented in the HPI. Past Medical History Past Medical History: Thyroid Disorder Additional Past Medical History / Comment(s): hx kidney stone History of Any Multi-Drug Resistant Organisms: None Reported Past Surgical History: No Surgical Hx Reported Past Anesthesia/Blood Transfusion Reactions: No Reported Reaction Past Psychological History: Anxiety, Depression Smoking Status: Current every day smoker Past Alcohol Use History: Occasional Past Drug Use History: Prescription Drug Abuse - Past Family History Mother Family Medical History: Cancer Father Family Medical History: No Reported History <Paige Feliciano - Last Filed: 06/15/22 15:34> General Exam Limitations: no limitations General appearance: alert, in no apparent distress Head exam: Present: atraumatic, normocephalic, normal inspection Eye exam: Present: normal appearance, PERRL, EOMI. Absent: scleral icterus, conjunctival injection, periorbital swelling ENT exam: Present: normal exam, mucous membranes moist Neck exam: Present: normal inspection. Absent: tenderness, meningismus, lymphadenopathy Respiratory exam: Present: normal lung sounds bilaterally. Absent: respiratory distress, wheezes, rales, rhonchi, stridor Cardiovascular Exam: Present: regular rate, normal rhythm, normal heart sounds. Absent: systolic murmur, diastolic murmur, rubs, gallop, clicks GI/Abdominal exam: Present: soft, normal bowel sounds. Absent: distended, tenderness, guarding, rebound, rigid Extremities exam: Present: normal inspection, full ROM, normal capillary refill. Absent: tenderness, pedal edema, joint swelling, calf tenderness Back exam: Present: normal inspection Neurological exam: Present: alert, oriented X3, CN II-XII intact Psychiatric exam: Present: normal affect, normal mood Skin exam: Present: warm, dry, intact, normal color. Absent: rash <Paige Feliciano - Last Filed: 06/15/22 15:34> Course <Ramiro Fan - Last Filed: 06/15/22 20:17> Vital Signs 06/15/22 06/15/22 09:06 20:00 Temperature 97.9 F 98.1 F Pulse Rate 82 75 Respiratory 18 16 Rate Blood Pressure 124/71 120/68 O2 Sat by Pulse 100 98 Oximetry - Reevaluation(s) Reevaluation #1: 06/15/22 20:17 Medical records reviewed Medical clear for psychiatric evaluation (Ramiro Fan) Medical Decision Making <Paige Feliciano - Last Filed: 06/15/22 15:34> <Ramiro Fan - Last Filed: 06/15/22 20:17> - Medical Decision Making Was pt. sent in by a medical professional or institution (, PA, DRUGLESS DOCTOR, urgent care, hospital, or usp...) When possible be specific @ -[No] Did you speak to anyone other than the patient for history (EMS, parent, family, police, friend...)? What history was obtained from this source @ -[No] Did you review nursing and triage notes (agree or disagree)? Why? @ -[I reviewed and agree with nursing and triage notes] Were old charts reviewed (outside hosp., previous admission, EMS record, old EKG, old radiological studies, urgent care reports/EKG's, usp records)? Report findings @ -[No old charts were reviewed] Differential Diagnosis (chest pain, altered mental status, abdominal pain women, abdominal pain men, vaginal bleeding, weakness, fever, dyspnea, syncope, headache, dizziness, GI bleed, back pain, seizure, CVA, palpatations, mental health, musculoskeletal)? @ -[not applicable] EKG interpreted by me (3pts min.). @ -[As above] X-rays interpreted by me (1pt min.). @ -[None done] CT interpreted by me (1pt min.). @ -[None done] U/S interpreted by me (1pt. min.). @ -[None done] What testing was considered but not performed or refused? (CT, X-rays, U/S, labs)? Why? @ -[None] What meds were considered but not given or refused? Why? @ -[None] Did you discuss the management of the patient with other professionals (professionals i.e. , PA, DRUGLESS DOCTOR, lab, RT, psych nurse, director social welfare, quality assurance analyst, teacher, licensing officer, major case detective)? Give summary @ -[No] Was smoking cessation discussed for >3mins.? @ -[No] Was critical care preformed (if so, how long)? @ -[No] Were there social determinants of health that impacted care today? How? (Homelessness, low income, unemployed, alcoholism, drug addiction, transportation, low edu. Level, literacy, decrease access to med. care, halfway, rehab)? @ -[No] Was there de-escalation of care discussed even if they declined (Discuss DNR or withdrawal of care, Hospice)? DNR status @ -[No] What co-morbidities impacted this encounter? (DM, HTN, Smoking, COPD, CAD, Cancer, CVA, ARF, Chemo, Hep., AIDS, mental health diagnosis, sleep apnea, morbid obesity)? @ -[None] Was patient admitted / discharged? Hospital course, mention meds given and route, prescriptions, significant lab abnormalities, going to OR and other pertinent info. @ -Upon arrival patient was placed in room 24. A thorough history and physical exam was performed. Patient is medically cleared at this time and is awaiting EPS evaluation. She will be signed out to Dr. Fan for further evaluation Undiagnosed new problem with uncertain prognosis? @ -[No] Drug Therapy requiring intensive monitoring for toxicity (Heparin, Nitro, Insulin, Cardizem)? @ -[No] Were any procedures done? @ -[No] Diagnosis/symptom? @ -[default] Acute, or Chronic, or Acute on Chronic? @ -[default] Uncomplicated (without systemic symptoms) or Complicated (systemic symptoms)? @ -[default] Side effects of treatment? @ -[No] Exacerbation, Progression, or Severe Exacerbation? @ -[No] Poses a threat to life or bodily function? How? (Chest pain, USA, SC, pneumonia, PE, COPD, DKA, ARF, appy, cholecystitis, CVA, Diverticulitis, Homicidal, Suicidal, threat to staff... and all critical care pts) @ -[No] (Paige Feliciano) 27 female to be admitted for psychiatric evaluation and treatment (Ramiro Fan) - Lab Data Lab Results 06/15/22 06/15/22 06/15/22 Range/Units 09:28 14:42 16:29 Urine HCG, Qual Not Detected (Not Detectd) Urine Opiates Screen Not Detected (NotDetected) Ur Oxycodone Screen Not Detected (NotDetected) Urine Methadone Screen Not Detected (NotDetected) Ur Propoxyphene Screen Not Detected (NotDetected) Ur Barbiturates Screen Not Detected (NotDetected) U Tricyclic Antidepress Not Detected (NotDetected) Ur Phencyclidine Scrn Not Detected (NotDetected) Ur Amphetamines Screen Not Detected (NotDetected) U Methamphetamines Scrn Not Detected (NotDetected) U Benzodiazepines Scrn Not Detected (NotDetected) Urine Cocaine Screen Not Detected (NotDetected) U Marijuana (THC) Screen Not Detected (NotDetected) Coronavirus (PCR) Not Detected (Not Detectd) Disposition <Damer,Paige A - Last Filed: 06/15/22 15:34> <Ramiro Fan - Last Filed: 06/15/22 20:17> Clinical Impression: Acute anxiety, Depression, Suicidal ideation, Adjustment reaction of adult life Disposition: TRANSFER TO PSYCH HOSP/UNIT Condition: Fair
[2022-06-15] MEDS ORDERED: MAGNESIUM HYDROXIDE 2,400 MG/10 ML CUP PO PRN (18:51)
[2022-06-15] MEDS ORDERED: ACETAMINOPHEN TAB 325 MG TAB PO PRN (18:51)
[2022-06-15] MEDS ORDERED: MAG HYDROX/AL HYDROX/SIMETH 30 ML CUP PO PRN (18:51)
[2022-06-15] MEDS ORDERED: hydrOXYzine HCL 50 MG/ML 1 ML VIAL IM PRN (18:53)
[2022-06-15] MEDS ORDERED: hydrOXYzine pamoate 25 MG CAP PO PRN (18:53)
[2022-06-15] MEDS ORDERED: OLANZapine 10 MG VIAL IM PRN (18:53)
[2022-06-15] MEDS ORDERED: OLANZapine 5 MG TAB PO PRN (18:53)
[2022-06-15 20:16] VITALS: RESP 16
[2022-06-16 06:37] VITALS: BP 102/58; PULSE 69; TEMP 98.6
[2022-06-16] MEDS ORDERED: NICOTINE 14MG/24HR PATCH TRANSDERM SCH (09:00)
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
[2022-06-16 12:22] LABS: Basophils % (A) 0 %; Eosinophils # (A) 0.3 k/uL (0-0.7); Eosinophils % (A) 6 %; HCT 43.5 % (34.0-46.0); HGB 14.8 gm/dL (11.4-16.0); Lymphocytes # (A) 1.4 k/uL (1.0-4.8); Lymphocytes % (A) 24 %; MCH 32.5 pg (25.0-35.0); MCHC 33.9 g/dL (31.0-37.0); MCV 95.8 fL (80.0-100.0); Mean Platelet Volume 7.9; Monocytes # (A) 0.2 k/uL (0-1.0); Monocytes % (A) 4 %; Neutrophils # (A) 3.8 k/uL (1.3-7.7); Neutrophils % (A) 64 %; Platelet Count 283 k/uL (150-450); RBC 4.55 m/uL (3.80-5.40); RDW 12.2 % (11.5-15.5)
[2022-06-16 12:36] LABS: ALT 17 U/L (4-34); AST 20 U/L (14-36); African American GFR (CKD) >90 (>60 ml/min/1.73 sqM); Albumin 4.1 g/dL (3.5-5.0); Alkaline Phosphatase 70 U/L (38-126); Anion Gap 5 mmol/L; Blood Urea Nitrogen 14 mg/dL (7-17); Calcium 9.2 mg/dL (8.4-10.2); Carbon Dioxide 28 mmol/L (22-30); Chloride 104 mmol/L (98-107); Glucose 85 mg/dL (74-99); Non-African American GFR(CKD) >90 (>60 ml/min/1.73 sqM); Potassium 4.4 mmol/L (3.5-5.1); Sodium 137 mmol/L (137-145); Total Bilirubin 0.8 mg/dL (0.2-1.3); Total Protein 6.9 g/dL (6.3-8.2)
[2022-06-16] MEDS ORDERED: diphenhydrAMINE 50 MG CAP PO STA (13:16)
--- NOTE | 2022-06-16 13:50 | P.DS ---
Providers Date of admission: 06/15/22 18:46 Expected date of discharge: 06/16/22 Attending physician: Maximo Calderon MD Consults: 06/15/22 18:51 Consult Physician Routine Consulting Provider: Rosey Gardiner Consult Reason/Comments: H&P Do you want consulting provider notified?: Yes Primary care physician: Stated None - Discharge Diagnosis(es) (1) Borderline personality disorder Current Visit: Yes Status: Chronic Priority: Low (2) Severe stimulant use disorder Current Visit: Yes Status: Inactive Priority: Low (3) Cocaine use disorder in remission Current Visit: Yes Status: Suspected Priority: Low Hospital Course: Patient had her psychiatric H&P done by me today. She had her physical examination done in the ER on 06/15/2022 by Paige Feliciano. After psychiatric well the findings of psychiatric well were discussed with her including the recommended management. She agreed with this and and will have outpatient DBT. This was discussed with treatment team and it was agreed to discharge her and she will be seen [facility] for therapy. At the time of discharge she is polite and pleasant and cooperative. She does not show any psychomotor agitation or retardation. Her speech is spontaneous relevant and goal-directed. Her mood is euthymic to cheerful and affect is appropriate to the thought content. She denies hallucinations, delusional thinking suicide and homicide thoughts. She is well oriented with adequate memory and concentration. Assessment: As in hospital course above Health Concerns: None Pertinent Studies: Not applicable Procedures: None Patient Condition at Discharge: Stable Plan - Discharge Summary Discharge Rx Participant: No New Discharge Prescriptions: New Magnesium Hydroxide [Milk of Magnesia Concentrate] 2,400 mg PO DAILY PRN ml PRN Reason: Constipation Acetaminophen Tab [Tylenol] 650 mg PO Q4HR PRN tab PRN Reason: Pain/Discomfort Mag Hydrox/Al Hydrox/Simeth [Maalox] 30 ml PO Q4HR PRN ml PRN Reason: Gi Upset Discharge Medication List Acetaminophen Tab [Tylenol] 650 mg PO Q4HR PRN tab 06/16/22 [Rx] Mag Hydrox/Al Hydrox/Simeth [Maalox] 30 ml PO Q4HR PRN ml 06/16/22 [Rx] Magnesium Hydroxide [Milk of Magnesia Concentrate] 2,400 mg PO DAILY PRN ml 06/16/22 [Rx] Follow up Appointment(s)/Referral(s): [facility] [place] [Outside] - 06/22/22 11:00 am (with Wilman Umana Fax d/c packet to [facility] office ) None,Stated [Primary Care Provider] - 1-2 days
== END 2022-06-16 16:59 | disposition home or self-care (01) | DRG 883 ==
LOC: EC 09:03 → 3MHU 18:46
PROVIDERS: ADMIT Psychiatry & Neurology Psychiatry; ATTEND Psychiatry & Neurology Psychiatry
DX: F60.3 Borderline personality disorder (principal); R45.851 Suicidal ideations; F14.11 Cocaine abuse, in remission; F15.21 Other stimulant dependence, in remission; Z20.822 Contact with and (suspected) exposure to COVID-19; Z28.310 Unvaccinated for COVID-19; F43.22 Adjustment disorder with anxiety; E07.9 Disorder of thyroid, unspecified; F17.210 Nicotine dependence, cigarettes, uncomplicated; Z71.6 Tobacco abuse counseling; Z55.5 Less than a high school diploma; Z87.442 Personal history of urinary calculi; Z91.013 Allergy to seafood; Z91.018 Allergy to other foods; Z81.8 Family history of other mental and behavioral disorders
CPT/HCPCS: 80053; 80306; 81025; 82075; 83036; 84443; 85025; 87635; 99285

== ENCOUNTER 2024-08-18 01:19 | Emergency (ER) | payer BC ==
[2024-08-18 01:30] VITALS: RESP 18; TEMP 97.9
[2024-08-18] MEDS: IBUPROFEN 600 MG TAB PO STA (02:10)
[2024-08-18] MEDS: AMOXIC-POT CLAV 875-125MG 1 EACH TAB PO STA (02:10)
--- NOTE | 2024-08-18 02:15 | ED ---
Animal Bite HPI - General Chief Complaint: Animal Bite Stated Complaint: Dog bite Time Seen by Provider: 08/18/24 01:32 Source: patient Mode of arrival: ambulatory - History of Present Illness Initial Comments: This patient is a 29-year-old woman who arrives to have evaluation of hand injury due to dog bite. Patient states she was dogs and one of them bit her. She states that related to rabies the dog had been taken into quarantine by police officers. The dog had been given 1 tetanus shot approximately days prior. the patient denies other injuries. She indicates puncture wound x 3 to the hand and also partial nail avulsion. The patient also states that she has never had primary tetanus vaccination. MD Complaint: animal bite Onset/Timin -: hour(s) Right: Hand Animal: dog Description: household pet Mechanism: bite Pain Description: sharp Context: animals fighting Associated Symptoms: none - Related Data Patient Tetanus UTD: No Previous Rx's Medication Instructions Recorded Acetaminophen Tab [Tylenol] 650 mg PO Q4HR PRN tab 06/16/22 Mag Hydrox/Al Hydrox/Simeth 30 ml PO Q4HR PRN ml 06/16/22 [Maalox] Magnesium Hydroxide [Milk of 2,400 mg PO DAILY PRN ml 06/16/22 Magnesia Concentrate] Amoxic-Pot Clav 875-125Mg 1 tab PO Q12HR 1 Days #10 tab 08/18/24 [Augmentin 875-125] Allergies Allergy/AdvReac Type Severity Reaction Status Date / Time blueberry Allergy Anaphylaxis Verified 06/15/22 14:58 peach Allergy Anaphylaxis Verified 06/15/22 14:58 shellfish derived [Shellfish] Allergy Anaphylaxis Verified 06/15/22 14:58 Review of Systems ROS Statement: Those systems with pertinent positive or pertinent negative responses have been documented in the HPI. ROS Other: All systems not noted in ROS Statement are negative. Constitutional: Denies: fever, weakness Respiratory: Denies: dyspnea Cardiovascular: Denies: chest pain Skin: Reports: as per HPI, lesions Neurological: Denies: weakness, numbness Hematological/Lymphatic: Denies: easy bleeding Past Medical History Past Medical History: Thyroid Disorder Additional Past Medical History / Comment(s): hx kidney stone History of Any Multi-Drug Resistant Organisms: None Reported Past Surgical History: No Surgical Hx Reported Past Anesthesia/Blood Transfusion Reactions: No Reported Reaction Past Psychological History: Anxiety, Depression Smoking Status: Current every day smoker Past Alcohol Use History: Occasional Past Drug Use History: Prescription Drug Abuse - Past Family History Mother Family Medical History: Cancer Father Family Medical History: No Reported History General Exam Limitations: no limitations General appearance: alert, in no apparent distress Neurological exam: Present: alert. Absent: motor sensory deficit Skin exam: Present: warm, dry, normal color, other (Patient has small laceration to the pad of the fourth digit. There is avulsion of the distal portion of the nail. There is also a puncture wound to the dorsum of the third digit and 1 to the palmar aspect of the hand.) Course Vital Signs 08/18/24 08/18/24 01:27 03:08 Temperature 97.9 F 97.9 F Pulse Rate 104 H 98 Respiratory 18 18 Rate Blood Pressure 115/74 110/70 O2 Sat by Pulse 98 98 Oximetry Medical Decision Making - Medical Decision Making The patient had x-ray of the hand that I interpreted as negative for fracture, dislocation, foreign body Was pt. sent in by a medical professional or institution (, PA, FINISH PAINTER, urgent care, hospital, or senior living...) When possible be specific @ -[No] Did you speak to anyone other than the patient for history (EMS, parent, family, police, friend...)? What history was obtained from this source @ -[No] Did you review nursing and triage notes (agree or disagree)? Why? @ -[I reviewed and agree with nursing and triage notes] Were old charts reviewed (outside hosp., previous admission, EMS record, old EKG, old radiological studies, urgent care reports/EKG's, senior living records)? Report findings @ -[No old charts were reviewed] Differential Diagnosis (chest pain, altered mental status, abdominal pain women, abdominal pain men, vaginal bleeding, weakness, fever, dyspnea, syncope, headache, dizziness, GI bleed, back pain, seizure, CVA, palpatations, mental health, musculoskeletal)? @ -[Differential Musculoskeletal Muscular strain, contusion, ligament sprain, fracture, arthritis, septic arthritis, bursitis, cellulitis, muscle spasm, nerve compression, DVT, arterial occlusion, trauma, electrolyte abnormality, tumor.... This is not meant to be in all inclusive list EKG interpreted by me (3pts min.). @ -[As above] X-rays interpreted by me (1pt min.). @ -[I interpreted as above CT interpreted by me (1pt min.). @ -[None done] U/S interpreted by me (1pt. min.). @ -[None done] What testing was considered but not performed or refused? (CT, X-rays, U/S, labs)? Why? @ -[None] What meds were considered but not given or refused? Why? @ -[None] Did you discuss the management of the patient with other professionals (professionals i.e. , PA, FINISH PAINTER, lab, RT, psych nurse, social media executive, epic beacon specialists, teacher, worldwide chief creative officer, supervisor case loading)? Give summary @ -[No] Was smoking cessation discussed for >3mins.? @ -[No] Was critical care preformed (if so, how long)? @ -[No] Were there social determinants of health that impacted care today? How? (Homelessness, low income, unemployed, alcoholism, drug addiction, transportation, low edu. Level, literacy, decrease access to med. care, snf, rehab)? @ -[No] Was there de-escalation of care discussed even if they declined (Discuss DNR or withdrawal of care, Hospice)? DNR status @ -[No] What co-morbidities impacted this encounter? (DM, HTN, Smoking, COPD, CAD, Cancer, CVA, ARF, Chemo, Hep., AIDS, mental health diagnosis, sleep apnea, morbid obesity)? @ -[None] Was patient admitted / discharged? Hospital course, mention meds given and route, prescriptions, significant lab abnormalities, going to OR and other pertinent info. @ -[hospital course] Undiagnosed new problem with uncertain prognosis? @ -[No] Drug Therapy requiring intensive monitoring for toxicity (Heparin, Nitro, Insulin, Cardizem)? @ -[No] Were any procedures done? @ -[No] Diagnosis/symptom? @ -[Dog bite to the hand Acute, or Chronic, or Acute on Chronic? @ -[Acute Uncomplicated (without systemic symptoms) or Complicated (systemic symptoms)? @ -[Uncomplicated Side effects of treatment? @ -[No] Exacerbation, Progression, or Severe Exacerbation? @ -[No] Poses a threat to life or bodily function? How? (Chest pain, USA, OR, pneumonia, PE, COPD, DKA, ARF, appy, cholecystitis, CVA, Diverticulitis, Homicidal, Suicidal, threat to staff... and all critical care pts) @ -[Yes there is risk of developing subsequent infection. Discussed appropriate antibiotic use, follow-up, return parameters. All treatments are based on ideal body weight as in ED triage Disposition Clinical Impression: Dog bite Disposition: HOME SELF-CARE Condition: Good Instructions (If sedation given, give patient instructions): Animal Bite (ED) Additional Instructions: You should have repeat tetanus vaccination in 1 month and then again in 6 to 12 months to complete your series of tetanus vaccinations. Prescriptions: Amoxic-Pot Clav 875-125Mg [Augmentin 875-125] 1 tab PO Q12HR 1 Days #10 tab Is patient prescribed a controlled substance at d/c from ED?: No Referrals: None,Stated [Primary Care Provider] - 1-2 days
[2024-08-18] MEDS: DIPH,PERTUS(ACELL)TETVAC-LF 0.5 ML VIAL IM ONE (02:56)
[2024-08-18] MEDS: BACITRACIN OINT 1 EACH PACKET TOPICAL ONE (02:57)
[2024-08-18 03:10] VITALS: BP 110/70; PULSE 98
--- NOTE | 2024-08-18 07:19 | XR ---
EXAMINATION TYPE: XR hand complete RT DATE OF EXAM: 08/18/2024 2:08 AM COMPARISON: None CLINICAL INDICATION: Female, 29 years old with history of dog bite; PHH, pain TECHNIQUE: XR hand complete RT 3 views were obtained. FINDINGS: Normal alignment of the visualized joints. No acute osseous pathology is identified. No e vidence of soft tissue swelling. No significant degeneration No radiopaque foreign bodies. IMPRESSION: No acute osseous pathology. No radiopaque foreign bodies. [facility], , 08/18/2024 7:16 AM
== END 2024-08-18 03:08 | disposition home or self-care (01) ==
LOC: EC 01:19
DX: S61.452A Open bite of left hand, initial encounter (principal); S61.451A Open bite of right hand, initial encounter; F17.200 Nicotine dependence, unspecified, uncomplicated; Z91.018 Allergy to other foods; Z91.013 Allergy to seafood; Z23 Encounter for immunization; W54.0XXA Bitten by dog, initial encounter
CPT/HCPCS: 90471; 90715; 99283